=== PATIENT | female | born 1975 | race Caucasian/White ===

== ENCOUNTER 2021-09-06 11:52 | Inpatient (IN) | payer MEDICARE, MEDICAID, SELFPAY ==
--- NOTE | ~2021-09-06 | CT_ITS ---
EXAMINATION: CT HEAD WITHOUT CONTRAST CLINICAL INFORMATION: Seizures COMPARISON: None. TECHNIQUE: Contiguous axial imaging was performed from the skull base to vertex without intravenous administration of contrast. Coronal and sagittal reformatted images are performed at the CT scanner. [This CT examination was performed using dose optimization techniques as appropriate, variously including the following: *Automated exposure control *Adjustment of mA and/or kV according to patient size (this includes techniques or standardized protocols for targeted exams where dose is matched to indication/reason for exam; i.e. extremities or head) *Use of iterative reconstruction technique] DLP: 646 mGy-cm. FINDINGS: There is no evidence of acute intracranial hemorrhage or territorial infarction. No abnormal mass-effect or midline shift is seen. Mor[place] to white matter differentiation is well preserved. No extra-axial fluid collections are identified. The ventricles are normal in size. There is no abnormal attenuation within the brain parenchyma. There is no osseous abnormality. The mastoid air cells and visualized portions of the paranasal sinuses are well-aerated. CT/CT head/brain wo con IMPRESSION: No acute intracranial pathology.
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
[2021-09-06 12:34] VITALS: BP 135/64; PULSE 76; RESP 18; TEMP 37; O2SAT 95; BMI 33.2
[2021-09-06 13:50] LABS: MANUAL DIFF FLAG NO
[2021-09-06 13:54] LABS: Basophils Percent Auto 0.3 % (0-2); Eosinophils Absolute Auto 0.1 X10*3/uL (0.0-0.4); Eosinophils Percent Auto 2.1 % (0-4); Hemoglobin 9.5 g/dl (12.0-16.0); Imm Gran Abs Auto 0.02 X10*3/uL (0.00-0.03); Imm Gran Pct Auto 0.3 % (0.0-0.4); Lymphocytes Absolute Auto 2.6 X10*3/uL (1.2-4.9); Lymphocytes Percent Auto 38.2 % (20-40); Mean Corpuscular HGB Conc 32.8 g/dl (31.0-35.0); Mean Corpuscular Hemoglobin 28.3 pg (27.0-33.0); Mean Corpuscular Volume 86.3 fL (80.0-98.0); Mean Platelet Volume 11.2 fL (9.4-12.3); Monocytes Absolute Auto 0.7 X10*3/uL (0.1-1.2); Monocytes Percent Auto 9.7 % (2-11); Neutrophils Absolute Auto 3.3 x10*3/uL (2.0-8.3); Neutrophils Percent Auto 49.4 % (45-73); Platelet Count 178 X10*3/uL (160-400); Red Blood Count 3.36 X10*6/uL (4.20-5.50); Red Cell Distribution Width 13.7 % (11.0-16.0); White Blood Count 6.7 X10*3/uL (4.8-10.8)
[2021-09-06 13:57] LABS: UPreg QC Valid YES; Urine Pregnancy NEGATIVE (NEGATIVE)
[2021-09-06 13:58] LABS: Appearance Urine CLEAR; Color Urine YELLOW; Glucose Urine UA NEG (NEG); Leukocyte Esterase Urine 2+ (NEG); Nitrite Urine NEG (NEG); Specific Gravity - Urine 1.025 (1.005-1.025); UACC Culture Trigger YES; Urine Blood NEG (NEG); Urine Ketones NEG (NEG); Urine Protein NEG (NEG-TRACE)
[2021-09-06 14:09] LABS: Bacteria Urine TRACE /LPF; RBC Urine 0 /HPF (0); Squamous Epithelial Cell Urine 4+ /LPF
[2021-09-06 14:11] LABS: Amphetamine Screen Urine Not Detected (Not Detect); Barbiturates, Urine Not Detected (Not Detect); Benzodiazepines Screen Urine Not Detected (Not Detect); Cannabinoid Screen Urine Not Detected (Not Detect); Cocaine Screen Urine Not Detected (Not Detect); Fentanyl, urine Not Detected (Not Detect); Opiate Screen Urine Not Detected (Not Detect); Phencyclidine Screen Urine Not Detected (Not Detect)
[2021-09-06 14:23] LABS: Alanine Aminotransferase 30 U/L (0-31); Albumin Level 4.2 g/dL (3.5-5.0); Alkaline Phosphatase 47 U/L (39-117); Anion Gap 12 (12-20); Aspartate Amino Transferase 30 U/L (5-31); Bilirubin Total < 0.2 mg/dL (0.0-1.0); Blood Urea Nitrogen 17 mg/dL (9-16); Calcium 9.4 mg/dL (8.4-10.2); Carbon Dioxide 25 mmol/L (22-29); Chloride 104 mmol/L (96-108); Creatinine Clr Calc Pharmacy 82.9; Estimated Glomerular Filt Rate > 60; Ethanol < 10 mg/dL; Glucose Random 104 mg/dL (60-115); Potassium 4.7 mmol/L (3.3-5.1); Sodium 136 mmol/L (135-145); Total Protein 7.5 g/dL (6.5-8.0)
--- NOTE | 2021-09-06 15:16 | ED.PSYCH ---
HPI - Psych General Chief Complaint: Psychiatric Symptoms Stated Complaint: Psych eval Time Seen by Provider: 09/06/21 13:33 Source: patient Mode of arrival: ambulatory Limitations: no limitations History of Present Illness HPI Narrative: 46-year-old female with history of depression presents to ED for depression. Patient states being depressed for months but has no suicidal homicidal ideations. Patient saw her psychiatrist yesterday recommend her be admitted for inpatient and to receive ECT. Patient denies any physical complaints. Related Data Home Medications Medication Instructions Recorded Confirmed albuterol sulfate 90 mcg/actuation 1 inh inhalation Q4H PRN SOB 09/06/21 09/06/21 aerosol inhaler aripiprazole 2 mg tablet 1 tab PO DAILY 09/06/21 09/06/21 buprenorphine 8 mg-naloxone 2 mg 1 strip sublingual TID 09/06/21 09/06/21 sublingual film cholecalciferol (vitamin D3) 50 1 cap PO DAILY 09/06/21 09/06/21 mcg (2,000 unit) capsule (Vitamin D3) clonidine HCl 0.1 mg tablet 1 tab PO TID PRN Anxiety 09/06/21 09/06/21 clotrimazole 1 % topical cream 1 appl topical BID PRN Rash 09/06/21 09/06/21 dextroamphetamine-amphetamine ER 1 cap PO DAILY 09/06/21 09/06/21 25 mg 24hr capsule,extend release estradiol 2 mg (7.5 mcg/24 hour) 1 ring vaginal [id number] 09/06/21 09/06/21 vaginal ring (Estring) gabapentin 600 mg tablet 1 tab PO QID 09/06/21 09/06/21 ibuprofen 800 mg tablet 1 tab PO TID 09/06/21 09/06/21 levothyroxine 100 mcg tablet 1 tab PO DAILY 09/06/21 09/06/21 linaclotide 290 mcg capsule 1 cap PO DAILY 09/06/21 09/06/21 (Linzess) lorazepam 0.5 mg tablet 1 tab PO TID 09/06/21 09/06/21 omeprazole 20 mg capsule,delayed 1 cap PO DAILY@1630 09/06/21 09/06/21 release propranolol 60 mg tablet 1 tab PO BID 09/06/21 09/06/21 sertraline 100 mg tablet 2 tab PO DAILY 09/06/21 09/06/21 simvastatin 40 mg tablet 1 tab PO BEDTIME 09/06/21 09/06/21 zolpidem 10 mg tablet 1 tab PO BEDTIME 09/06/21 09/06/21 Allergies Allergy/AdvReac Type Severity Reaction Status Date / Time No Known Allergies Allergy Verified 09/06/21 12:34 [No Known Allergies*] Review of Systems Review of Systems: Depression [facility] Social History Social History Advance Directives: No Advance Directives Information Provided: No Physical Exam Vital Signs: Vital Signs: Last Vital Signs Temp 97.5 F 09/06/21 16:45 Pulse 79 09/06/21 16:45 Resp 15 09/06/21 16:45 BP 137/68 09/06/21 16:45 Pulse Ox 96 09/06/21 16:45 O2 Del Method 09/06/21 16:45 BMI result Body Mass Index 33.2 Const: General: cooperative, healthy appearing, comfortable, no acute distress, well developed, alert, awake and Physically active Orientation/consciousness: patient oriented x3 HEENT: Head: Yes normal to inspection, Yes No palpable skull fracture present, Yes normocephalic, Yes atraumatic and No abrasion Eyes: General: appearance normal, both eyes and all related structures Neck: Neck: Yes normal visual inspection, Yes full ROM, Yes no lymphadenopathy, Yes no meningeal signs, Yes trachea midline, Yes supple, No anterior neck swelling and No tender Chest: Chest palpation & inspection: normal inspection of the chest and normal palpation of entire chest wall Resp: Effort & Inspection: normal respiratory effort and able to speak in complete sentences Cardio: Jugular venous distension: no JVD Heart sounds: S1 normal heart sound present and S2 normal heart sound present GI: Inspection: Yes normal to inspection and No abdominal wall ecchymosis Palpation (GI): Soft to palpation, not firm, nontender, no guarding and not rigid : General: No CVA tenderness and Yes no CVA tenderness Back/Spine/Pelvis: Back: no CVA tenderness, No CVA tenderness and No back tenderness Skin: General skin exam: no rashes or lesions noted and elasticity normal Neuro: General: patient oriented x3, gait normal, no meningeal signs and CN's II-XI intact bilaterally Cranial nerves: Yes CN's II-XII intact bilaterally Extrem: General: Yes normal to inspection and Yes full ROM Psych: Other: Depressed Appearance: grossly normal and well kempt Course Course Course Narrative: Basic labs ordered. Crisis evaluation placed Reevaluation(s) Reevaluation #1: Liver normal. UA shows contamination. Patient awaiting crisis evaluation Time: 18:21 MDM - Psych MDM Narrative Medical decision making narrative: Depression Lab Data Result diagrams: 09/06/21 13:46 09/06/21 13:46 Labs: Lab Results 09/06/21 09/06/21 09/06/21 Range/Units 13:46 13:46 13:46 WBC 6.7 (4.8-10.8) X10*3/uL RBC 3.36 L (4.20-5.50) X10*6/uL Hgb 9.5 L (12.0-16.0) g/dl Hct 29.0 L (37.0-47.0) % MCV 86.3 (80.0-98.0) fL MCH 28.3 (27.0-33.0) pg MCHC 32.8 (31.0-35.0) g/dl RDW 13.7 (11.0-16.0) % Plt Count 178 (160-400) X10*3/uL MPV 11.2 (9.4-12.3) fL Immature Gran % (Auto) 0.3 (0.0-0.4) % Neut % (Auto) 49.4 (45-73) % Lymph % (Auto) 38.2 (20-40) % [place] % (Auto) 9.7 (2-11) % Eos % (Auto) 2.1 (0-4) % Baso % (Auto) 0.3 (0-2) % Lymph # (Auto) 2.6 (1.2-4.9) X10*3/uL [place] # (Auto) 0.7 (0.1-1.2) X10*3/uL Eos # (Auto) 0.1 (0.0-0.4) X10*3/uL Baso # (Auto) 0.0 (0.0-0.2) X10*3/uL Abs Immat Gran (auto) 0.02 (0.00-0.03) X10*3/uL Absolute Neuts (auto) 3.3 (2.0-8.3) x10*3/uL Absolute Nucleated RBC 0.000 (0.0-0.012) X10*3/uL Nucleated RBC % (auto) 0.0 (0.0-0.2) /100WBC Sodium 136 (135-145) mmol/L Potassium 4.7 (3.3-5.1) mmol/L Chloride 104 (96-108) mmol/L Carbon Dioxide 25 (22-29) mmol/L Anion Gap 12 (12-20) BUN 17 H (9-16) mg/dL Creatinine 0.77 (0.5-1.4) mg/dL Estim Creat Clear Calc 82.9 Estimated GFR > 60 Random Glucose 104 (60-115) mg/dL Calcium 9.4 (8.4-10.2) mg/dL Total Bilirubin < 0.2 (0.0-1.0) mg/dL AST 30 (5-31) U/L ALT 30 (0-31) U/L Alkaline Phosphatase 47 (39-117) U/L Total Protein 7.5 (6.5-8.0) g/dL Albumin 4.2 (3.5-5.0) g/dL Urine Color YELLOW Urine Appearance CLEAR Urine pH 6.0 (5.0-8.0) Ur Specific [place] 1.025 (1.005-1.025) Urine Protein NEG (NEG-TRACE) MG/DL Urine Glucose (UA) NEG (NEG) MG/DL Urine Ketones NEG (NEG) MG/DL Urine Blood NEG (NEG) Urine Nitrite NEG (NEG) Ur Leukocyte Esterase 2+ H (NEG) Urine RBC 0 (0) /HPF Urine WBC 5-9 H (0-4) /HPF Ur Squamous Epith Cells 4+ /LPF Urine Bacteria TRACE /LPF Urine Test (NEGATIVE) Urine Opiates Screen (Not Detect) Urine Fentanyl Screen (Not Detect) Ur Barbiturates Screen (Not Detect) Ur Phencyclidine Scrn (Not Detect) Ur Amphetamines Screen (Not Detect) U Benzodiazepines Scrn (Not Detect) Urine Cocaine Screen (Not Detect) U Marijuana (THC) Screen (Not Detect) Ethyl Alcohol < 10 mg/dL 09/06/21 09/06/21 Range/Units 13:46 13:46 WBC (4.8-10.8) X10*3/uL RBC (4.20-5.50) X10*6/uL Hgb (12.0-16.0) g/dl Hct (37.0-47.0) % MCV (80.0-98.0) fL MCH (27.0-33.0) pg MCHC (31.0-35.0) g/dl RDW (11.0-16.0) % Plt Count (160-400) X10*3/uL MPV (9.4-12.3) fL Immature Gran % (Auto) (0.0-0.4) % Neut % (Auto) (45-73) % Lymph % (Auto) (20-40) % [place] % (Auto) (2-11) % Eos % (Auto) (0-4) % Baso % (Auto) (0-2) % Lymph # (Auto) (1.2-4.9) X10*3/uL [place] # (Auto) (0.1-1.2) X10*3/uL Eos # (Auto) (0.0-0.4) X10*3/uL Baso # (Auto) (0.0-0.2) X10*3/uL Abs Immat Gran (auto) (0.00-0.03) X10*3/uL Absolute Neuts (auto) (2.0-8.3) x10*3/uL Absolute Nucleated RBC (0.0-0.012) X10*3/uL Nucleated RBC % (auto) (0.0-0.2) /100WBC Sodium (135-145) mmol/L Potassium (3.3-5.1) mmol/L Chloride (96-108) mmol/L Carbon Dioxide (22-29) mmol/L Anion Gap (12-20) BUN (9-16) mg/dL Creatinine (0.5-1.4) mg/dL Estim Creat Clear Calc Estimated GFR Random Glucose (60-115) mg/dL Calcium (8.4-10.2) mg/dL Total Bilirubin (0.0-1.0) mg/dL AST (5-31) U/L ALT (0-31) U/L Alkaline Phosphatase (39-117) U/L Total Protein (6.5-8.0) g/dL Albumin (3.5-5.0) g/dL Urine Color Urine Appearance Urine pH (5.0-8.0) Ur Specific [place] (1.005-1.025) Urine Protein (NEG-TRACE) MG/DL Urine Glucose (UA) (NEG) MG/DL Urine Ketones (NEG) MG/DL Urine Blood (NEG) Urine Nitrite (NEG) Ur Leukocyte Esterase (NEG) Urine RBC (0) /HPF Urine WBC (0-4) /HPF Ur Squamous Epith Cells /LPF Urine Bacteria /LPF Urine Test NEGATIVE (NEGATIVE) Urine Opiates Screen Not Detected (Not Detect) Urine Fentanyl Screen Not Detected (Not Detect) Ur Barbiturates Screen Not Detected (Not Detect) Ur Phencyclidine Scrn Not Detected (Not Detect) Ur Amphetamines Screen Not Detected (Not Detect) U Benzodiazepines Scrn Not Detected (Not Detect) Urine Cocaine Screen Not Detected (Not Detect) U Marijuana (THC) Screen Not Detected (Not Detect) Ethyl Alcohol mg/dL Discharge Plan Discharge Clinical Impression: Depression Patient Disposition: Still a Patient Prescriptions: No Action clonidine HCl 0.1 mg tablet 1 tab PO TID PRN (Reason: Anxiety) gabapentin 600 mg tablet 1 tab PO QID ibuprofen 800 mg tablet 1 tab PO TID sertraline 100 mg tablet 2 tab PO DAILY propranolol 60 mg tablet 1 tab PO BID simvastatin 40 mg tablet 1 tab PO BEDTIME levothyroxine 100 mcg tablet 1 tab PO DAILY lorazepam 0.5 mg tablet 1 tab PO TID omeprazole 20 mg capsule,delayed release(DR/EC) 1 cap PO DAILY@1630 zolpidem 10 mg tablet 1 tab PO BEDTIME albuterol sulfate 90 mcg/actuation HFA aerosol inhaler 1 inh INHALATION Q4H PRN (Reason: SOB) dextroamphetamine-amphetamine 25 mg capsule,extended release 24hr 1 cap PO DAILY aripiprazole 2 mg tablet 1 tab PO DAILY cholecalciferol (vitamin D3) [Vitamin D3] 50 mcg (2,000 unit) capsule 1 cap PO DAILY buprenorphine-naloxone 8-2 mg film 1 strip sublingual TID Linzess 290 mcg capsule 1 cap PO DAILY Estring 2 mg (7.5 mcg /24 hour) ring 1 ring vaginal [id number] clotrimazole 1 % Cream 1 appl TOPICAL BID PRN (Reason: Rash) Rx Instructions: apply to under breast
--- NOTE | 2021-09-06 16:28 | PHA.MEDREC ---
Pharmacy Consult ? Medication Reconciliation Pharmacy has completed the medication reconciliation. Patient reported all medications. Reports taking ibuprofen and ativan scheduled instead of as needed. Patient reports that she does not need the linzess while she it here. Hayley Metz, PharmD
[2021-09-06 16:45] VITALS: BP 137/68; PULSE 79; RESP 15; TEMP 36.4; O2SAT 96
[2021-09-06 20:37] VITALS: BP 121/76; PULSE 71
[2021-09-06] MEDS: Propranolol HCL 20 MG TABLET 60 MG PO (20:39)
[2021-09-06] MEDS: Ibuprofen 800 MG TABLET PO (20:40)
[2021-09-06] MEDS: Gabapentin 600 MG TABLET PO (20:40)
[2021-09-06] MEDS: LORazepam 0.5 MG TABLET PO (20:40)
[2021-09-06] MEDS: Atorvastatin Calcium 20 MG TABLET PO (20:40)
[2021-09-06] MEDS: Buprenorphine/Naloxone 8/2 mg FILM 1 FILM SUBLINGUAL (20:41)
[2021-09-06] MEDS: Zolpidem Tartrate 5 MG TABLET PO (22:23)
[2021-09-06 23:26] LABS: COVID-19 Test Negative (Negative); IDNOW Serial# 16C4AD1C
[2021-09-06 23:45] VITALS: BP 131/73; PULSE 68; RESP 18; TEMP 36.6; O2SAT 96
--- NOTE | 2021-09-07 01:40 | PC.ADMIT ---
Nneka is a 46 year old Maldivian speaking woman who self presented to [facility] [place] ED due to increase in depression, anxiety and vague SI . She reports broken sleep and decreased appetite, she is hoping to receive ECT and reports it has been helpful in the past. She suffers from chronic back pain, hypertension, hypothyroidism and osteoporosis due to early menopause. Tox screen and Covid test were negative.She has a history of chronic constipation which she takes Linzess every other day for but she was told that it is not available at [facility]. Her mood was depressed with good insight and is hopeful of a positive outcome with ECT
[2021-09-07 06:00] VITALS: BP 131/72; PULSE 62; RESP 18; TEMP 35.9; O2SAT 96
[2021-09-07] MEDS: Levothyroxine Sodium 100 MCG TABLET PO (06:56)
[2021-09-07 08:44] LABS: Estimated Average Glucose 140 mg/dL; Hemoglobin A1c % 6.5 %
[2021-09-07 09:00] LABS: Cholesterol 315 mg/dL; HDL Cholesterol 49 mg/dL; LDL Cholesterol Calculated 199 mg/dl; Triglycerides 339 mg/dL
[2021-09-07 09:08] LABS: Free T4 (Free Thyroxine) 1.23 ng/dL (0.71-1.85); Thyroid Stimulating Hormone 0.02 uIU/mL (0.32-4.0)
[2021-09-07 09:26] LABS: Folate 9.5 ng/mL (> or = 4.0); Vitamin B12 336 pg/mL (200-900)
[2021-09-07] MEDS: Buprenorphine/Naloxone 8/2 mg FILM 1 FILM SUBLINGUAL ×3 (09:30→20:39)
[2021-09-07] MEDS: Dextroamphetamine/Amphetamine XR 5 MG CAP.ER.24H 25 MG PO (09:30)
[2021-09-07] MEDS: ARIPiprazole 2 MG TABLET PO (09:30)
[2021-09-07] MEDS: Gabapentin 600 MG TABLET PO ×4 (09:31→20:39)
[2021-09-07] MEDS: Propranolol HCL 20 MG TABLET 60 MG PO ×2 (09:32→20:39)
[2021-09-07] MEDS: LORazepam 0.5 MG TABLET PO ×3 (09:32→20:39)
[2021-09-07] MEDS: Ibuprofen 800 MG TABLET PO ×3 (09:33→20:39)
[2021-09-07] MEDS: Cholecalciferol (Vitamin D3) 25 MCG TABLET 50 MCG PO (09:39)
[2021-09-07] MEDS: Sertraline HCL 100 MG TABLET 200 MG PO (10:37)
[2021-09-07] MEDS: Acetaminophen 325 MG TABLET 650 MG PO (13:29)
[2021-09-07] MEDS: Omeprazole 20 MG CAPSULE.DR PO (17:16)
[2021-09-07 18:00] VITALS: BP 167/91; PULSE 76; RESP 18; TEMP 36.1; O2SAT 95
--- NOTE | 2021-09-07 18:25 | HO.PSYADMNOT ---
HPI Date of Service: 09/07/21 Chief Complaint: ECT, Depression Sources of Information: patient interviewed, chart reviewed and crisis/core team assessment reviewed HPI Subjective Notes: Irby Warning and Conditional Voluntary Healthcare Proxy: No Guardianship: No Medical Problems Affecting Mental Status: No Narrative: 46 yo female history of bipolar disorder presents with reports of increase in depression and SI. Reports a history of ECT with Dr. Ding and this was one of the only interventions that helped. States she is doing this for her 15 yo daughter as they are planning on moving at some point to [place] or [place], and I want to be there for her. Current depressive episode has been ongoing for over a year, the anxiety this time is greater than it has ever been in my life . Reports memory issues, disrupted sleep and appetite, and a great deal of time thinking about - if it were not for my daughter I would kill myself . Denies plan, denies hx of attempts. Reports hx of PTSD-triggers with certain smells, noises. Reports renetta by history. Pt and daughter live with pt's parents. Pt spends her days in her room (has done this for years). Gets her daughter off to school, activities, etc, has no friends, no social life, just remains in her room. Would like to begin an exercise program if she were to feel less depressed. Does have a puppy and takes care of her, otherwise, amotivation, anergia and isolation are strong sx. Past Psychiatric History: IP: 5 OP [facility] [employer] Geovanna Reed-psychothrapy PCP does psychopharm-Pam Dan [facility] Had initial psychopharm appt with [employer] [employer]-prescriber told her to come to [facility] and get admitted for ECT Trials: Several Medical Evaluation Reviewed: Yes [facility] Medical History (Updated 09/07/21 @ 18:42 by Airam Bishop APRN) Bipolar disorder, now depressed Narrative: Hypothyroid Anemia Family History: Depression Diagnostics Vital Signs (24Hr): Vital Signs - 24 hr 09/06/21 20:37 09/06/21 23:45 09/07/21 06:00 Temperature 97.9 F 96.6 F L Pulse Rate 71 68 62 Respiratory Rate 18 18 Blood Pressure 121/76 131/73 131/72 Pulse Oximetry 96 96 Oxygen Delivery Method Room Air Room Air BMI result Body Mass Index 33.2 Labs Results: 09/06/21 13:46 09/06/21 13:46 Labs: Laboratory Results - last 48 hr 09/06/21 09/06/21 09/06/21 13:46 13:46 13:46 WBC 6.7 RBC 3.36 L Hgb 9.5 L Hct 29.0 L MCV 86.3 MCH 28.3 MCHC 32.8 RDW 13.7 Plt Count 178 MPV 11.2 Immature Gran % (Auto) 0.3 Neut % (Auto) 49.4 Lymph % (Auto) 38.2 [place] % (Auto) 9.7 Eos % (Auto) 2.1 Baso % (Auto) 0.3 Lymph # (Auto) 2.6 [place] # (Auto) 0.7 Eos # (Auto) 0.1 Baso # (Auto) 0.0 Abs Immat Gran (auto) 0.02 Absolute Neuts (auto) 3.3 Absolute Nucleated RBC 0.000 Nucleated RBC % (auto) 0.0 Sodium 136 Potassium 4.7 Chloride 104 Carbon Dioxide 25 Anion Gap 12 BUN 17 H Creatinine 0.77 Estim Creat Clear Calc 82.9 Estimated GFR > 60 Random Glucose 104 Estimat Average Glucose Hemoglobin A1c % Calcium 9.4 Magnesium Total Bilirubin < 0.2 AST 30 ALT 30 Alkaline Phosphatase 47 Total Protein 7.5 Albumin 4.2 Triglycerides Cholesterol LDL Cholesterol, Calc HDL Cholesterol Vitamin B12 Folate TSH Free T4 Urine Color YELLOW Urine Appearance CLEAR Urine pH 6.0 Ur Specific [place] 1.025 Urine Protein NEG Urine Glucose (UA) NEG Urine Ketones NEG Urine Blood NEG Urine Nitrite NEG Ur Leukocyte Esterase 2+ H Urine RBC 0 Urine WBC 5-9 H Ur Squamous Epith Cells 4+ Urine Bacteria TRACE Urine Test Urine Opiates Screen Urine Fentanyl Screen Ur Barbiturates Screen Ur Phencyclidine Scrn Ur Amphetamines Screen U Benzodiazepines Scrn Urine Cocaine Screen U Marijuana (THC) Screen Ethyl Alcohol < 10 COVID-19 (ROMAN) COVID-19 Clin Com 09/06/21 09/06/21 09/06/21 13:46 13:46 22:50 WBC RBC Hgb Hct MCV MCH MCHC RDW Plt Count MPV Immature Gran % (Auto) Neut % (Auto) Lymph % (Auto) [place] % (Auto) Eos % (Auto) Baso % (Auto) Lymph # (Auto) [place] # (Auto) Eos # (Auto) Baso # (Auto) Abs Immat Gran (auto) Absolute Neuts (auto) Absolute Nucleated RBC Nucleated RBC % (auto) Sodium Potassium Chloride Carbon Dioxide Anion Gap BUN Creatinine Estim Creat Clear Calc Estimated GFR Random Glucose Estimat Average Glucose Hemoglobin A1c % Calcium Magnesium Total Bilirubin AST ALT Alkaline Phosphatase Total Protein Albumin Triglycerides Cholesterol LDL Cholesterol, Calc HDL Cholesterol Vitamin B12 Folate TSH Free T4 Urine Color Urine Appearance Urine pH Ur Specific [place] Urine Protein Urine Glucose (UA) Urine Ketones Urine Blood Urine Nitrite Ur Leukocyte Esterase Urine RBC Urine WBC Ur Squamous Epith Cells Urine Bacteria Urine Test NEGATIVE Urine Opiates Screen Not Detected Urine Fentanyl Screen Not Detected Ur Barbiturates Screen Not Detected Ur Phencyclidine Scrn Not Detected Ur Amphetamines Screen Not Detected U Benzodiazepines Scrn Not Detected Urine Cocaine Screen Not Detected U Marijuana (THC) Screen Not Detected Ethyl Alcohol COVID-19 (ROMAN) Negative COVID-[employer] [place] Com See Note 09/07/21 09/07/21 09/07/21 08:03 08:03 08:03 WBC RBC Hgb Hct MCV MCH MCHC RDW Plt Count MPV Immature Gran % (Auto) Neut % (Auto) Lymph % (Auto) [place] % (Auto) Eos % (Auto) Baso % (Auto) Lymph # (Auto) [place] # (Auto) Eos # (Auto) Baso # (Auto) Abs Immat Gran (auto) Absolute Neuts (auto) Absolute Nucleated RBC Nucleated RBC % (auto) Sodium Potassium Chloride Carbon Dioxide Anion Gap BUN Creatinine Estim Creat Clear Calc Estimated GFR Random Glucose Estimat Average Glucose 140 Hemoglobin A1c % 6.5 Calcium Magnesium 2.0 Total Bilirubin AST ALT Alkaline Phosphatase Total Protein Albumin Triglycerides 339 Cholesterol 315 LDL Cholesterol, Calc 199 HDL Cholesterol 49 Vitamin B12 336 Folate 9.5 TSH 0.02 L Free T4 1.23 Urine Color Urine Appearance Urine pH Ur Specific [place] Urine Protein Urine Glucose (UA) Urine Ketones Urine Blood Urine Nitrite Ur Leukocyte Esterase Urine RBC Urine WBC Ur Squamous Epith Cells Urine Bacteria Urine Test Urine Opiates Screen Urine Fentanyl Screen Ur Barbiturates Screen Ur Phencyclidine Scrn Ur Amphetamines Screen U Benzodiazepines Scrn Urine Cocaine Screen U Marijuana (THC) Screen Ethyl Alcohol COVID-19 (ROMAN) COVID-19 [place] Meds/Allergies Meds Home Medications Medication Instructions Recorded Confirmed Type albuterol sulfate 90 mcg/actuation 1 inh inhalation Q4H PRN SOB 09/06/21 09/06/21 History aerosol inhaler aripiprazole 2 mg tablet 1 tab PO DAILY 09/06/21 09/06/21 History buprenorphine 8 mg-naloxone 2 mg 1 strip sublingual TID 09/06/21 09/06/21 History sublingual film cholecalciferol (vitamin D3) 50 1 cap PO DAILY 09/06/21 09/06/21 History mcg (2,000 unit) capsule (Vitamin D3) clonidine HCl 0.1 mg tablet 1 tab PO TID PRN Anxiety 09/06/21 09/06/21 History clotrimazole 1 % topical cream 1 appl topical BID PRN Rash 09/06/21 09/06/21 History dextroamphetamine-amphetamine ER 1 cap PO DAILY 09/06/21 09/06/21 History 25 mg 24hr capsule,extend release estradiol 2 mg (7.5 mcg/24 hour) 1 ring vaginal [id number] 09/06/21 09/06/21 History vaginal ring (Estring) gabapentin 600 mg tablet 1 tab PO QID 09/06/21 09/06/21 History ibuprofen 800 mg tablet 1 tab PO TID 09/06/21 09/06/21 History levothyroxine 100 mcg tablet 1 tab PO DAILY 09/06/21 09/06/21 History linaclotide 290 mcg capsule 1 cap PO DAILY 09/06/21 09/06/21 History (Linzess) lorazepam 0.5 mg tablet 1 tab PO TID 09/06/21 09/06/21 History omeprazole 20 mg capsule,delayed 1 cap PO DAILY@1630 09/06/21 09/06/21 History release propranolol 60 mg tablet 1 tab PO BID 09/06/21 09/06/21 History sertraline 100 mg tablet 2 tab PO DAILY 09/06/21 09/06/21 History simvastatin 40 mg tablet 1 tab PO BEDTIME 09/06/21 09/06/21 History zolpidem 10 mg tablet 1 tab PO BEDTIME 09/06/21 09/06/21 History Allergies Allergies Allergy/AdvReac Type Severity Reaction Status Date / Time atorvastatin AdvReac Severe Muscle Pain Verified 09/07/21 18:40 lithium AdvReac Severe Anaphylaxis Uncoded 09/07/21 18:28 Mental Status Exam Mental Status Exam Patient Appearance: Appropriate Patient Orientation: Person, Place, Time and Situation Level of Consciousness: Awake and Alert Patient Behavior: Talkative and Cooperative Mood Description: Depressed and Anxious Affect Description: Flat Patient Cognition Impaired: No Ability to Follow Directions: Good Speech Pattern: Spontaneous Speech Memory Description: Intact Hallucinations: None Delusions: Not Present Thought Process: Rumination Thought Content: positive for Circumstantial Depressive Symptoms: Increased Anxiety, Difficulty Sleeping, Changes in Appetite, Feelings of Worthlessness, Hopelessness, Isolating-Friends/Family, Increased Fatigue, Low Self Esteem, Loss of Energy and Difficulty Concentrating Judgement: Good Assessment & Plan Assessment & Plan (1) Bipolar disorder, now depressed: Status: Acute Code(s): F31.30 - Bipolar disorder, current episode depressed, mild or moderate severity, unspecified Plan 46 yo female, hx of bipolar disorder, depression presents after a >1 year episode without sx relief. Hx of ECT at [facility] which she found helpful. Pt returns per recommendation of new [employer] psychopharmacology provider for eval for ECT. Plan: ECT Consult Review of medications/diagnostics Abilify just added-continue Ferrous Sulfate 325 mg daily Patient educated on: medication risk/benefits and therapeutic strategies Informed Consent: further education needed Reason for continued inpatient stay Substantial Risk for: harm to self, inability to function and rapid decompensation
[2021-09-07] MEDS: traZODone HCL 50 MG TABLET PO (20:39)
[2021-09-07] MEDS: Zolpidem Tartrate 5 MG TABLET 10 MG PO (20:39)
--- NOTE | 2021-09-08 | ECG_ITS ---
Test Reason : Chest discomfort Blood Pressure : / mmHG Vent. Rate : 066 BPM Atrial Rate : 066 BPM P-R Int : 166 ms QRS Dur : 094 ms QT Int : 394 ms P-R-T Axes : 042 013 034 degrees QTc Int : 413 ms Normal sinus rhythm Normal ECG When compared with ECG of 10-JAN-2016 11:27, QT has shortened Referred By: Mary Slaughter Electronically Signed By:ELIUD IRBY
[2021-09-08] MEDS: Levothyroxine Sodium 100 MCG TABLET PO (06:41)
[2021-09-08] MEDS: Acetaminophen 325 MG TABLET 650 MG PO ×2 (06:51→23:49)
[2021-09-08 08:00] VITALS: BP 98/57; PULSE 66; TEMP 36.3; O2SAT 95
[2021-09-08] MEDS: Dextroamphetamine/Amphetamine XR 5 MG CAP.ER.24H 25 MG PO (09:10)
[2021-09-08] MEDS: ARIPiprazole 2 MG TABLET PO (09:11)
[2021-09-08] MEDS: Ferrous Sulfate 324 MG TABLET.DR 325 MG PO (09:11)
[2021-09-08] MEDS: Sertraline HCL 100 MG TABLET 200 MG PO (09:12)
[2021-09-08] MEDS: Cholecalciferol (Vitamin D3) 25 MCG TABLET 50 MCG PO (09:12)
[2021-09-08] MEDS: Ibuprofen 800 MG TABLET PO ×3 (09:12→21:53)
[2021-09-08] MEDS: Gabapentin 600 MG TABLET PO ×4 (09:12→21:53)
[2021-09-08] MEDS: Propranolol HCL 20 MG TABLET 60 MG PO ×2 (09:12→21:52)
[2021-09-08] MEDS: LORazepam 0.5 MG TABLET PO ×3 (09:13→21:53)
[2021-09-08] MEDS: Buprenorphine/Naloxone 8/2 mg FILM 1 FILM SUBLINGUAL ×3 (09:13→21:54)
[2021-09-08] MEDS: Omeprazole 20 MG CAPSULE.DR PO (16:56)
[2021-09-08 21:45] VITALS: BP 129/73; PULSE 104; TEMP 36; O2SAT 95
[2021-09-08] MEDS: Zolpidem Tartrate 5 MG TABLET 10 MG PO (21:53)
[2021-09-08] MEDS: traZODone HCL 100 MG TABLET PO (23:49)
--- NOTE | 2021-09-09 01:10 | PC.NURSE ---
0110 c/o right sided facial numbness and blurred vision. no signs of stroke. facial features symetrical, no drooping, no slurred speech. vital signs 108/57. 89. 95%. 96.9 Temp. given sleeping medications prior to symptoms occuring. Hx of facial symtpoms from meds in the past. Will notify MD in morning.
[2021-09-09 06:00] VITALS: BP 110/66; PULSE 65; RESP 18
[2021-09-09] MEDS: Propranolol HCL 20 MG TABLET 60 MG PO ×2 (08:34→20:28)
[2021-09-09] MEDS: Sertraline HCL 100 MG TABLET 200 MG PO (08:34)
[2021-09-09] MEDS: ARIPiprazole 5 MG TABLET PO (08:34)
[2021-09-09] MEDS: LORazepam 0.5 MG TABLET PO ×3 (08:34→20:28)
[2021-09-09] MEDS: Gabapentin 600 MG TABLET PO ×4 (08:34→20:28)
[2021-09-09] MEDS: Ferrous Sulfate 324 MG TABLET.DR PO (08:36)
[2021-09-09] MEDS: Ibuprofen 800 MG TABLET PO ×3 (08:36→20:28)
[2021-09-09] MEDS: Buprenorphine/Naloxone 8/2 mg FILM 1 FILM SUBLINGUAL ×3 (08:36→20:28)
[2021-09-09] MEDS: Levothyroxine Sodium 100 MCG TABLET PO (08:36)
[2021-09-09] MEDS: Cholecalciferol (Vitamin D3) 25 MCG TABLET 50 MCG PO (08:36)
[2021-09-09] MEDS: Dextroamphetamine/Amphetamine XR 5 MG CAP.ER.24H 25 MG PO (08:41)
--- NOTE | 2021-09-09 10:19 | HO.PSYCHPN ---
Subjective Subjective Date of Service: 09/08/21 Reason For Visit: ECT, Depression Subjective Notes: Irby Warning and Conditional Voluntary Healthcare Proxy: No Guardianship: No Medical Problems Affecting Mental Status: No Interim History: Patient seen and discussed with team. EKG wnl. Patient evaluated today and upon interview she reports she is here for ECT consult. Says I feel like I did at home. Started abilify 2 mg, says she hopes it starts to help. Says she didnt sleep at all last night, attributes this to being in the hospital environment. Says she is on her second night without sleep. Will increase trazodone to 100 mg. States I need to get through these ECTs and feel like im coming up a little bit. Upset she doesnt have a single room. In the milieu, patient is safe and appropriate in behavior. Says she feels safe. ? Medication Compliance: Yes Side effects from medications: No Attending Groups: Intermittent Review of Systems Acute medical concerns: No Medical Review of Systems: unchanged Mental Status Exam Mental Status Exam Narrative: Patient Appearance: Appropriate Patient Orientation: Person, Place, Time and Situation Level of Consciousness: Awake and Alert Patient Behavior: Talkative and Cooperative Mood Description: Depressed and Anxious Affect Description: Flat Patient Cognition Impaired: No Ability to Follow Directions: Good Speech Pattern: Spontaneous Speech Memory Description: Intact Hallucinations: None Delusions: Not Present Thought Process: Rumination Thought Content: positive for Circumstantial Depressive Symptoms: Increased Anxiety, Difficulty Sleeping, Changes in Appetite, Feelings of Worthlessness, Hopelessness, Isolating-Friends/Family, Increased Fatigue, Low Self Esteem, Loss of Energy and Difficulty Concentrating Judgement: Good Diagnostics Vital Signs (24Hr): Vital Signs - 24 hr 09/08/21 21:45 09/09/21 06:00 Temperature 96.8 F Pulse Rate 104 H 65 Respiratory Rate 18 Blood Pressure 129/73 110/66 Pulse Oximetry 95 Oxygen Delivery Method Room Air BMI result Body Mass Index 33.2 Labs Results: 09/06/21 13:46 09/06/21 13:46 Medications Medications Current Medications Acetaminophen (Acetaminophen 325 Mg Tablet) 650 mg PO Q6H PRN PRN Reason: Headache/Pain Mild Scale (1-3) Last Admin: 09/08/21 23:49 Dose: 650 mg Al Hydroxide/Mg Hydroxide (Magnesium Hydrox/Alum Hydrox 30 Ml Oral.Susp) 30 ml PO Q6H PRN PRN Reason: Heartburn/Nausea Albuterol Sulfate (Albuterol Sulfate 90 Mcg 8 Gm Inhaler) 1 puff INHALE Q4H PRN PRN Reason: Shortness of Breath Amphetamine/Dextroamphetamine (Dextroamphetamine/Amphetamine Xr 5 Mg Cap.Er.24h) 25 mg PO DAILY [facility] Last Admin: 09/09/21 08:41 Dose: 25 mg Aripiprazole (Aripiprazole 5 Mg Tablet) 5 mg PO DAILY [facility] Last Admin: 09/09/21 08:34 Dose: 5 mg Buprenorphine/Naloxone (Buprenorphine/Naloxone 8/2 Mg Film) 1 film SUBLINGUAL TID [facility] Last Admin: 09/09/21 08:36 Dose: 1 film Clonidine HCl (Clonidine Hcl 0.1 Mg Tablet) 0.1 mg PO TID PRN; Protocol PRN Reason: Anxiety Clotrimazole (Clotrimazole 1 % Cream 15 Gm Tube) 1 appl TOPICAL BID PRN; Protocol PRN Reason: Rash Ferrous Sulfate (Ferrous Sulfate 324 Mg Tablet.) 324 mg PO DAILY [facility] Last Admin: 09/09/21 08:36 Dose: 324 mg Gabapentin (Gabapentin 600 Mg Tablet) 600 mg PO QID [facility] Last Admin: 09/09/21 08:34 Dose: 600 mg Hydroxyzine HCl (Hydroxyzine Hcl 25 Mg Tablet) 25 mg PO Q6H PRN PRN Reason: Anxiety Ibuprofen (Ibuprofen 800 Mg Tablet) 800 mg PO TID [facility] Last Admin: 09/09/21 08:36 Dose: 800 mg Levothyroxine Sodium (Levothyroxine Sodium 100 Mcg Tablet) 100 mcg PO DAILY@0600 [facility] Last Admin: 09/09/21 08:36 Dose: 100 mcg Lorazepam (Lorazepam 0.5 Mg Tablet) 0.5 mg PO TID [facility] Last Admin: 09/09/21 08:34 Dose: 0.5 mg Magnesium Hydroxide (Milk Of Magnesia 30 Ml Oral.Susp) 30 ml PO DAILY PRN PRN Reason: Constipation Omeprazole (Omeprazole 20 Mg Capsule.) 20 mg PO DAILY@1630 [facility] Last Admin: 09/08/21 16:56 Dose: 20 mg Pharmacy Consult (Consult Rx Perform Med Rec) 1 each MISCELLANE ONCE PRN PRN Reason: Consult order Propranolol HCl (Propranolol Hcl 20 Mg Tablet) 60 mg PO BID [facility]; Protocol Last Admin: 09/09/21 08:34 Dose: 60 mg Sertraline HCl (Sertraline Hcl 100 Mg Tablet) 200 mg PO DAILY [facility] Last Admin: 09/09/21 08:34 Dose: 200 mg Trazodone HCl (Trazodone Hcl 100 Mg Tablet) 100 mg PO BEDTIME PRN PRN Reason: Insomnia Last Admin: 09/08/21 23:49 Dose: 100 mg Vitamin D (Cholecalciferol (Vitamin D3) 25 Mcg Tablet) 50 mcg PO DAILY [facility] Last Admin: 09/09/21 08:36 Dose: 50 mcg Zolpidem Tartrate (Zolpidem Tartrate 5 Mg Tablet) 10 mg PO BEDTIME [facility] Last Admin: 09/08/21 21:53 Dose: 10 mg Allergies Allergies Allergy/AdvReac Type Severity Reaction Status Date / Time atorvastatin AdvReac Severe Muscle Pain Verified 09/07/21 18:40 lithium AdvReac Severe Anaphylaxis Uncoded 09/07/21 18:28 Assessment & Plan Assessment & Plan (1) Bipolar disorder, now depressed: Status: Acute Code(s): F31.30 - Bipolar disorder, current episode depressed, mild or moderate severity, unspecified Plan 46 yo female, hx of bipolar disorder, depression presents after a >1 year episode without sx relief. H[place] of [place] [facility] [place] she found helpful. Pt returns per recommendation of new [facility] psychopharmacology provider for eval for ECT. Plan: ECT Consult Review of medications/diagnostics Abilify just added-continue Ferrous Sulfate 325 mg daily I spent minutes with the patient and/or on the patient floor today, greater than?50% of which was spent counseling/coordinating care. Patient educated on: medication risk/benefits Reason for contiued inpatient stay Substantial Risk for: harm to self, inability to function, rapid decompensation and med/psych decompensation
--- NOTE | 2021-09-09 10:19 | HO.PSYCHPN ---
Subjective Subjective Date of Service: 09/09/21 Reason For Visit: ECT, Depression Subjective Notes: Irby Warning and Conditional Voluntary Healthcare Proxy: No Guardianship: No Medical Problems Affecting Mental Status: No Interim History: Patient seen and discussed with team. Patient evaluated today and upon interview she reports she slept for 5 hours, says the increase in trazodone helped. Feels she has been settling in. Things are going better with her roommate. Says she is trying to be more active, has been up and walking, which helps with back pain. No SE on abilify, wants to increase the dose. Interested in vagus nerve stimulation for depression. Says she is very motivated to feel better, I just want it so bad. In the milieu, patient is safe and appropriate in behavior. Says she feels safe. Medication Compliance: Yes Side effects from medications: No Attending Groups: Intermittent Review of Systems Acute medical concerns: No Medical Review of Systems: unchanged Mental Status Exam Mental Status Exam Narrative: Patient Appearance: Appropriate Patient Orientation: Person, Place, Time and Situation Level of Consciousness: Awake and Alert Patient Behavior: Talkative and Cooperative Mood Description: Depressed and Anxious Affect Description: Flat Patient Cognition Impaired: No Ability to Follow Directions: Good Speech Pattern: Spontaneous Speech Memory Description: Intact Hallucinations: None Delusions: Not Present Thought Process: Rumination Thought Content: positive for Circumstantial Depressive Symptoms: Increased Anxiety, Difficulty Sleeping, Changes in Appetite, Feelings of Worthlessness, Hopelessness, Isolating-Friends/Family, Increased Fatigue, Low Self Esteem, Loss of Energy and Difficulty Concentrating Judgement: Good Diagnostics Vital Signs (24Hr): Vital Signs - 24 hr 09/08/21 21:45 09/09/21 06:00 Temperature 96.8 F Pulse Rate 104 H 65 Respiratory Rate 18 Blood Pressure 129/73 110/66 Pulse Oximetry 95 Oxygen Delivery Method Room Air BMI result Body Mass Index 33.2 Labs Results: 09/06/21 13:46 09/06/21 13:46 Medications Medications Current Medications Acetaminophen (Acetaminophen 325 Mg Tablet) 650 mg PO Q6H PRN PRN Reason: Headache/Pain Mild Scale (1-3) Last Admin: 09/08/21 23:49 Dose: 650 mg Al Hydroxide/Mg Hydroxide (Magnesium Hydrox/Alum Hydrox 30 Ml Oral.Susp) 30 ml PO Q6H PRN PRN Reason: Heartburn/Nausea Albuterol Sulfate (Albuterol Sulfate 90 Mcg 8 Gm Inhaler) 1 puff INHALE Q4H PRN PRN Reason: Shortness of Breath Amphetamine/Dextroamphetamine (Dextroamphetamine/Amphetamine Xr 5 Mg Cap.Er.24h) 25 mg PO DAILY [facility] Last Admin: 09/09/21 08:41 Dose: 25 mg Aripiprazole (Aripiprazole 5 Mg Tablet) 5 mg PO DAILY [facility] 234 BEDS AT [facility] Last Admin: 09/09/21 08:34 Dose: 5 mg Buprenorphine/Naloxone (Buprenorphine/Naloxone 8/2 Mg Film) 1 film SUBLINGUAL TID [facility] 234 BEDS AT [facility] Last Admin: 09/09/21 08:36 Dose: 1 film Clonidine HCl (Clonidine Hcl 0.1 Mg Tablet) 0.1 mg PO TID PRN; Protocol PRN Reason: Anxiety Clotrimazole (Clotrimazole 1 % Cream 15 Gm Tube) 1 appl TOPICAL BID PRN; Protocol PRN Reason: Rash Ferrous Sulfate (Ferrous Sulfate 324 Mg Tablet.) 324 mg PO DAILY [facility] 234 BEDS AT [facility] Last Admin: 09/09/21 08:36 Dose: 324 mg Gabapentin (Gabapentin 600 Mg Tablet) 600 mg PO QID [facility] 234 BEDS AT [facility] Last Admin: 09/09/21 08:34 Dose: 600 mg Hydroxyzine HCl (Hydroxyzine Hcl 25 Mg Tablet) 25 mg PO Q6H PRN PRN Reason: Anxiety Ibuprofen (Ibuprofen 800 Mg Tablet) 800 mg PO TID [facility] 234 BEDS AT [facility] Last Admin: 09/09/21 08:36 Dose: 800 mg Levothyroxine Sodium (Levothyroxine Sodium 100 Mcg Tablet) 100 mcg PO DAILY@0600 [facility] 234 BEDS AT [facility] Last Admin: 09/09/21 08:36 Dose: 100 mcg Lorazepam (Lorazepam 0.5 Mg Tablet) 0.5 mg PO TID [facility] 234 BEDS AT [facility] Last Admin: 09/09/21 08:34 Dose: 0.5 mg Magnesium Hydroxide (Milk Of Magnesia 30 Ml Oral.Susp) 30 ml PO DAILY PRN PRN Reason: Constipation Omeprazole (Omeprazole 20 Mg Capsule.) 20 mg PO DAILY@1630 [facility] 234 BEDS AT [facility] Last Admin: 09/08/21 16:56 Dose: 20 mg Pharmacy Consult (Consult Rx Perform Med Rec) 1 each MISCELLANE ONCE PRN PRN Reason: Consult order Propranolol HCl (Propranolol Hcl 20 Mg Tablet) 60 mg PO BID [facility] 234 BEDS AT [facility]; Protocol Last Admin: 09/09/21 08:34 Dose: 60 mg Sertraline HCl (Sertraline Hcl 100 Mg Tablet) 200 mg PO DAILY [facility] 234 BEDS AT [facility] Last Admin: 09/09/21 08:34 Dose: 200 mg Trazodone HCl (Trazodone Hcl 100 Mg Tablet) 100 mg PO BEDTIME PRN PRN Reason: Insomnia Last Admin: 09/08/21 23:49 Dose: 100 mg Vitamin D (Cholecalciferol (Vitamin D3) 25 Mcg Tablet) 50 mcg PO DAILY [facility] 234 BEDS AT [facility] Last Admin: 09/09/21 08:36 Dose: 50 mcg Zolpidem Tartrate (Zolpidem Tartrate 5 Mg Tablet) 10 mg PO BEDTIME [facility]CLUDE 234 BEDS AT [facility] Last Admin: 09/08/21 21:53 Dose: 10 mg Allergies Allergies Allergy/AdvReac Type Severity Reaction Status Date / Time atorvastatin AdvReac Severe Muscle Pain Verified 09/07/21 18:40 lithium AdvReac Severe Anaphylaxis Uncoded 09/07/21 18:28 Assessment & Plan Assessment & Plan (1) Bipolar disorder, now depressed: Status: Acute Code(s): F31.30 - Bipolar disorder, current episode depressed, mild or moderate severity, unspecified Plan 46 yo female, hx of bipolar disorder, depression presents after a >1 year episode without sx relief. [place] [facility] [place]. Pt returns per recommendation of new [facility] psychopharmacology provider for eval for ECT. Plan: ECT Consult Review of medications/diagnostics Abilify just added-continue, increase to 5 mg Ferrous Sulfate 325 mg daily I spent minutes with the patient and/or on the patient floor today, greater than?50% of which was spent counseling/coordinating care. Patient educated on: diagnosis, medication risk/benefits and therapeutic strategies Reason for contiued inpatient stay Substantial Risk for: harm to self, rapid decompensation and med/psych decompensation
[2021-09-09] MEDS: Acetaminophen 325 MG TABLET 650 MG PO ×2 (12:23→21:58)
[2021-09-09] MEDS: Milk of Magnesia 30 ML ORAL.SUSP PO (12:47)
--- NOTE | 2021-09-09 15:22 | PC.RT ---
Discussed Home Cpap with Patient. She [id number] she had a sleep study over 1.5 years ago and it was a home study that was given to her by [facility]. She did qualify from what pt states and she was given a Cpap machine for noc. She states that since she received the Cpap machine, but she has never worn it. This is due because she just got a new puppy and the puppy was biting on her Cpap machine, therefore she called the [employer] and told them to come get her Cpap machine. She does not know her settings, and she would have to repeat another sleep apnea screening due to the test being over 1.5 years old. We certainly can try putting her on ours, but she hasn't worn it ever. So if this is something that the MD who prescribed this while here on M5, then we would be more than willing to accomodate patient. We can start her on Auto Cpap and on room air.
[2021-09-09] MEDS: Omeprazole 20 MG CAPSULE.DR PO (16:52)
[2021-09-09] MEDS: hydrOXYzine HCL 25 MG TABLET PO (19:02)
[2021-09-09] MEDS: Zolpidem Tartrate 5 MG TABLET 10 MG PO (21:17)
[2021-09-09 21:45] VITALS: BP 114/66; PULSE 74; TEMP 35.9; O2SAT 95
[2021-09-09] MEDS: traZODone HCL 100 MG TABLET PO (21:56)
[2021-09-09 23:34] VITALS: PULSE 73; O2SAT 97
[2021-09-10] VITALS (7 sets, daily range): BP systolic 93–170; BP diastolic 55–77; PULSE 74–94; RESP 16; TEMP 36.2–36.8; O2SAT 95–98
--- NOTE | 2021-09-10 | ECG_ITS ---
Test Reason : cp Blood Pressure : / mmHG Vent. Rate : 070 BPM Atrial Rate : 070 BPM P-R Int : 186 ms QRS Dur : 096 ms QT Int : 406 ms P-R-T Axes : 035 007 025 degrees QTc Int : 438 ms Normal sinus rhythm Possible Inferior infarct , age undetermined Abnormal ECG When compared with ECG of 08-SEP-2021 13:25, No significant change was found Referred By: Cliff Babcock Electronically Signed By:BOUCHRA CASTELLANO MD
[2021-09-10] MEDS: traZODone HCL 100 MG TABLET PO (00:16)
[2021-09-10] MEDS: Levothyroxine Sodium 100 MCG TABLET PO (06:29)
[2021-09-10] MEDS: Cholecalciferol (Vitamin D3) 25 MCG TABLET 50 MCG PO (08:19)
[2021-09-10] MEDS: ARIPiprazole 5 MG TABLET PO (08:19)
[2021-09-10] MEDS: Ferrous Sulfate 324 MG TABLET.DR PO (08:19)
[2021-09-10] MEDS: LORazepam 0.5 MG TABLET PO ×3 (08:19→20:24)
[2021-09-10] MEDS: Propranolol HCL 20 MG TABLET 60 MG PO ×2 (08:20→20:24)
[2021-09-10] MEDS: Dextroamphetamine/Amphetamine XR 5 MG CAP.ER.24H 25 MG PO (08:20)
[2021-09-10] MEDS: Sertraline HCL 100 MG TABLET 200 MG PO (08:20)
[2021-09-10] MEDS: Ibuprofen 800 MG TABLET PO ×3 (08:20→20:24)
[2021-09-10] MEDS: Gabapentin 600 MG TABLET PO ×4 (08:20→20:24)
[2021-09-10] MEDS: Buprenorphine/Naloxone 8/2 mg FILM 1 FILM SUBLINGUAL ×3 (08:21→20:24)
[2021-09-10] MEDS: Milk of Magnesia 30 ML ORAL.SUSP PO (11:30)
[2021-09-10] MEDS: carisoprodoL 350 MG TABLET PO ×2 (12:43→18:46)
--- NOTE | 2021-09-10 16:40 | P.PNPSI_ITS ---
Subjective Subjective Date of Service: 09/10/21 Reason For Visit: ECT, Depression Subjective Notes: Conditional Voluntary Healthcare Proxy: No Guardianship: No Medical Problems Affecting Mental Status: Yes (Back spasms-takes Soma which was ordered) Interim History: Tolerating Abilify increase. Finds CPAP helpful Appetite is appropriate in the a.m. then fades as the day progresses Describes more forward thinking-wanting to make social contacts, return to work. By history she reports she knows when the depression if becoming severe when she believes her daughter would be better off without her. Reports she does NOT feel that way today, and believes her participation in the milieu has been helpful-finds the opportunity to reconnect healing. ECT scheduled by Dr. Ryder for 09/12/21. Medication Compliance: Yes Side effects from medications: No Attending Groups: Yes Review of Systems Acute medical concerns: No Medical Review of Systems: unchanged Review of Systems Psychiatric: Reports anxiety, Reports change in appetite, Reports depression, Reports difficulty concentrating, Reports hopelessness, Reports anhedonia and Reports suicidal ideation (decreased) Mental Status Exam Mental Status Exam Patient Appearance: Appropriate Patient Orientation: Person, Place, Time and Situation Level of Consciousness: Alert Patient Behavior: Appropriate, Talkative, Cooperative and Good Eye Contact Mood Description: Depressed and Sad Affect Description: Flat Patient Cognition Impaired: No Ability to Follow Directions: Good Speech Pattern: Spontaneous Speech and Soft-Spoken Memory Description: Intact Hallucinations: None Delusions: Not Present Perceptual Disturbances: Depersonalization Thought Process: Goal Oriented Thought Content: positive for Goal Oriented and positive for Suicidal Ideation (decreasing) Depressive Symptoms: Diff. Making Decisions, Muscle Tension, Muscle Pain, Loss of Int. in Activity, Feelings of Worthlessness, Hopelessness, Isolating- Friends/Family, Feelings of Guilt, Unhappiness, Increased Fatigue, Thoughts of /Suicide (decreasing), Low Self Esteem, Loss of Energy, Difficulty Concentrating and Back Pain Judgement: Good Diagnostics Vital Signs (24Hr): Vital Signs - 24 hr 09/09/21 21:45 09/10/21 06:00 09/10/21 11:11 Temperature 96.6 F L 98.2 F 98.1 F Pulse Rate 74 82 74 Respiratory Rate 16 16 Blood Pressure 114/66 110/63 110/55 L Pulse Oximetry 95 98 96 Oxygen Delivery Method Room Air Room Air Room Air BMI result Body Mass Index 33.2 Labs Results: 09/06/21 13:46 09/06/21 13:46 Medications Medications Current Medications Acetaminophen (Acetaminophen 325 Mg Tablet) 650 mg PO Q6H PRN PRN Reason: Headache/Pain Mild Scale (1-3) Last Admin: 09/09/21 21:58 Dose: 650 mg Al Hydroxide/Mg Hydroxide (Magnesium Hydrox/Alum Hydrox 30 Ml Oral.Susp) 30 ml PO Q6H PRN PRN Reason: Heartburn/Nausea Albuterol Sulfate (Albuterol Sulfate 90 Mcg 8 Gm Inhaler) 1 puff INHALE Q4H PRN PRN Reason: Shortness of Breath Amphetamine/Dextroamphetamine (Dextroamphetamine/Amphetamine Xr 5 Mg Cap.Er.24h) 25 mg PO DAILY [facility] Last Admin: 09/10/21 08:20 Dose: 25 mg Aripiprazole (Aripiprazole 5 Mg Tablet) 5 mg PO DAILY [facility] Last Admin: 09/10/21 08:19 Dose: 5 mg Buprenorphine/Naloxone (Buprenorphine/Naloxone 8/2 Mg Film) 1 film SUBLINGUAL TID [facility] Last Admin: 09/10/21 14:28 Dose: 1 film Carisoprodol (Carisoprodol 350 Mg Tablet) 350 mg PO TID PRN PRN Reason: Pain, Mild (Pain Scale 1-3) Last Admin: 09/10/21 12:43 Dose: 350 mg Clonidine HCl (Clonidine Hcl 0.1 Mg Tablet) 0.1 mg PO TID PRN; Protocol PRN Reason: Anxiety Clotrimazole (Clotrimazole 1 % Cream 15 Gm Tube) 1 appl TOPICAL BID PRN; Protocol PRN Reason: Rash Ferrous Sulfate (Ferrous Sulfate 324 Mg Tablet.Dr) 324 mg PO DAILY [facility] Last Admin: 09/10/21 08:19 Dose: 324 mg Gabapentin (Gabapentin 600 Mg Tablet) 600 mg PO QID [facility] Last Admin: 09/10/21 13:21 Dose: 600 mg Hydroxyzine HCl (Hydroxyzine Hcl 25 Mg Tablet) 25 mg PO Q6H PRN PRN Reason: Anxiety Last Admin: 09/09/21 19:02 Dose: 25 mg Ibuprofen (Ibuprofen 800 Mg Tablet) 800 mg PO TID [facility] Last Admin: 09/10/21 14:28 Dose: 800 mg Levothyroxine Sodium (Levothyroxine Sodium 100 Mcg Tablet) 100 mcg PO DAILY@0600 [facility] Last Admin: 09/10/21 06:29 Dose: 100 mcg Lorazepam (Lorazepam 0.5 Mg Tablet) 0.5 mg PO TID [facility] Last Admin: 09/10/21 14:28 Dose: 0.5 mg Magnesium Hydroxide (Milk Of Magnesia 30 Ml Oral.Susp) 30 ml PO DAILY PRN PRN Reason: Constipation Last Admin: 09/10/21 11:30 Dose: 30 ml Omeprazole (Omeprazole 20 Mg Capsule.Dr) 20 mg PO DAILY@1630 [facility] Last Admin: 09/09/21 16:52 Dose: 20 mg Pharmacy Consult (Consult Rx Perform Med Rec) 1 each MISCELLANE ONCE PRN PRN Reason: Consult order Propranolol HCl (Propranolol Hcl 20 Mg Tablet) 60 mg PO BID [facility]; Protocol Last Admin: 09/10/21 08:20 Dose: 60 mg Sertraline HCl (Sertraline Hcl 100 Mg Tablet) 200 mg PO DAILY [facility] Last Admin: 09/10/21 08:20 Dose: 200 mg Trazodone HCl (Trazodone Hcl 100 Mg Tablet) 100 mg PO BEDTIME PRN PRN Reason: Insomnia Last Admin: 09/10/21 00:16 Dose: 100 mg Vitamin D (Cholecalciferol (Vitamin D3) 25 Mcg Tablet) 50 mcg PO DAILY [facility] Last Admin: 09/10/21 08:19 Dose: 50 mcg Zolpidem Tartrate (Zolpidem Tartrate 5 Mg Tablet) 10 mg PO BEDTIME [facility] Last Admin: 09/09/21 21:17 Dose: 10 mg Allergies Allergies Allergy/AdvReac Type Severity Reaction Status Date / Time atorvastatin AdvReac Severe Muscle Pain Verified 09/07/21 18:40 lithium AdvReac Severe Anaphylaxis Uncoded 09/07/21 18:28 Assessment & Plan Assessment & Plan (1) Bipolar disorder, now depressed: Status: Acute Code(s): F31.30 - Bipolar disorder, current episode depressed, mild or moderate severity, unspecified Plan 46 yo female, hx of bipolar disorder, depression presents after a >1 year epis ode without sx relief. Hx of ECT at [facility] [place] which she found helpful. Pt returns per recommendation of new [employer] psychopharmacology provider for eval for ECT. Plan: ECT Consult Review of medications/diagnostics Abilify just added-continue Ferrous Sulfate 325 mg daily 09/10/21 ECT 09/12/21 Tolerating Abilify increase Continue plan of care. I spent minutes with the patient and/or on the patient floor today, greater than?50% of which was spent counseling/coordinating care. Patient educated on: ECT and therapeutic strategies Informed Consent: understands and further education needed Reason for contiued inpatient stay Substantial Risk for: harm to self, inability to function and rapid decompensation
[2021-09-10] MEDS: Omeprazole 20 MG CAPSULE.DR PO (16:51)
--- NOTE | 2021-09-10 22:27 | P.EN_ITS ---
Event Note Date of Service: 09/10/21 Event Note: Rapid response note: Brief unresponsive episode versus seizure: Per RN patient was trying to take medications, 7 early was briefly unresponsive, noted to the chair, followed by patient had brief shaking episode; [employer] MACHINE OPERATOR was called in. On examination patient gradually recovered, follows commands, able to tell her name. Exam nonfocal. Reportedly patient had remote history of seizures. Seizure precautions Neurology consult Will obtain CT head, EKG, troponins, CBC/BMP
[2021-09-10 22:28] LABS: Glucose, Whole Blood 127 mg/dL (60-115)
[2021-09-10 22:56] LABS: MANUAL DIFF FLAG NO
[2021-09-10 23:05] LABS: Basophils Percent Auto 0.6 % (0-2); Eosinophils Absolute Auto 0.1 X10*3/uL (0.0-0.4); Eosinophils Percent Auto 2.2 % (0-4); Hematocrit 29.8 % (37.0-47.0); Hemoglobin 9.9 g/dl (12.0-16.0); Imm Gran Abs Auto 0.03 X10*3/uL (0.00-0.03); Imm Gran Pct Auto 0.6 % (0.0-0.4); Lymphocytes Absolute Auto 2.1 X10*3/uL (1.2-4.9); Lymphocytes Percent Auto 39.1 % (20-40); Mean Corpuscular HGB Conc 33.2 g/dl (31.0-35.0); Mean Corpuscular Hemoglobin 28.2 pg (27.0-33.0); Mean Corpuscular Volume 84.9 fL (80.0-98.0); Mean Platelet Volume 12.7 fL (9.4-12.3); Monocytes Absolute Auto 0.6 X10*3/uL (0.1-1.2); Monocytes Percent Auto 11.4 % (2-11); Neutrophils Absolute Auto 2.5 x10*3/uL (2.0-8.3); Neutrophils Percent Auto 46.1 % (45-73); Platelet Count 169 X10*3/uL (160-400); Red Blood Count 3.51 X10*6/uL (4.20-5.50); Red Cell Distribution Width 13.7 % (11.0-16.0); White Blood Count 5.4 X10*3/uL (4.8-10.8)
[2021-09-10 23:16] LABS: Anion Gap 17 (12-20); Blood Urea Nitrogen 21 mg/dL (9-16); Calcium 9.5 mg/dL (8.4-10.2); Carbon Dioxide 20 mmol/L (22-29); Chloride 102 mmol/L (96-108); Creatinine Clr Calc Pharmacy 66.5; Estimated Glomerular Filt Rate > 60; Glucose Random 115 mg/dL (60-115); Potassium 3.7 mmol/L (3.3-5.1); Sodium 135 mmol/L (135-145)
[2021-09-10 23:20] LABS: Troponin-I High Sensitivity 7.9 ng/L (<3.5-17.0)
[2021-09-11] MEDS: Zolpidem Tartrate 5 MG TABLET 10 MG PO ×2 (00:02→20:31)
--- NOTE | 2021-09-11 00:39 | PC.NURSE ---
At 2213 patient was standing at the medication window and was noted to be staring with no eye movement or blinking. This senior mortgage underwriter attempted to engage patient by calling her name. A Rapid Response call was initiated at 2218. Patient continued to stare and was noted to have mild tremors. Staff assisted patient onto a chair and vital signs were taken BP 170/77, HR 94 and O2 sats on room air 98%, respirations 14. POC was also done which was 125 per glucometer. Rapid Response team present at this time. Patient's tremors and staring lasted approximately 7 minutes. No loss of consciousness noted, no bowel or bladder incontinence noted. Orders were received from Dr. Babcock for blood work, EKG and CT of head. Patient awake at this time and able to interact with staff. She was taken by staff via wheelchair to have CT scan done after the labs were drawn on M5. Report given to night staff.
[2021-09-11] MEDS: Acetaminophen 325 MG TABLET 650 MG PO ×2 (03:48→13:32)
[2021-09-11] MEDS: carisoprodoL 350 MG TABLET PO ×4 (03:48→23:06)
[2021-09-11] MEDS: Levothyroxine Sodium 100 MCG TABLET PO (06:33)
[2021-09-11 07:45] VITALS: BP 129/67; PULSE 76; RESP 16; TEMP 36.4; O2SAT 98
[2021-09-11] MEDS: Dextroamphetamine/Amphetamine XR 5 MG CAP.ER.24H 25 MG PO (08:44)
[2021-09-11] MEDS: Cholecalciferol (Vitamin D3) 25 MCG TABLET 50 MCG PO (08:44)
[2021-09-11] MEDS: Ferrous Sulfate 324 MG TABLET.DR PO (08:45)
[2021-09-11] MEDS: Ibuprofen 800 MG TABLET PO ×3 (08:45→20:32)
[2021-09-11] MEDS: ARIPiprazole 5 MG TABLET PO (08:45)
[2021-09-11] MEDS: Gabapentin 600 MG TABLET PO ×4 (08:45→20:32)
[2021-09-11] MEDS: Buprenorphine/Naloxone 8/2 mg FILM 1 FILM SUBLINGUAL ×3 (08:45→20:31)
[2021-09-11] MEDS: LORazepam 0.5 MG TABLET PO ×3 (08:46→20:32)
[2021-09-11] MEDS: Sertraline HCL 100 MG TABLET 200 MG PO (08:46)
[2021-09-11] MEDS: Propranolol HCL 20 MG TABLET 60 MG PO ×2 (08:54→20:32)
[2021-09-11 09:33] LABS: Troponin-I High Sensitivity 7.5 ng/L (<3.5-17.0)
[2021-09-11] MEDS: polyethylene glycoL 3350 17 GM POWD.PACK PO ×2 (12:03→20:29)
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
[2021-09-11 15:35] LABS: Iron 91 mcg/dL (30-160); Percent Iron Saturation 18 % (15-50); Total Iron Binding Capacity 506 mcg/dL (228-428); Unsaturated Iron Binding 415 ug/dL
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
--- NOTE | 2021-09-11 16:59 | P.PNPSI_ITS ---
Subjective Subjective Reason For Visit: ECT, Depression Diagnostics Vital Signs (24Hr): Vital Signs - 24 hr 09/10/21 18:45 09/10/21 22:20 09/10/21 23:30 Temperature 97.1 F Pulse Rate 76 94 81 Respiratory Rate 16 Blood Pressure 106/62 170/77 H 94/57 L Pulse Oximetry 95 98 96 Oxygen Delivery Method Room Air Room Air Room Air 09/10/21 23:35 09/10/21 22:30 09/11/21 07:45 Temperature 97.6 F Pulse Rate 76 94 76 Respiratory Rate 16 16 16 Blood Pressure 93/55 L 170/77 H 129/67 Pulse Oximetry 97 98 Oxygen Delivery Method Room Air Room Air BMI result Body Mass Index 33.2 Labs Results: 09/10/21 22:50 09/10/21 22:50 Labs: Laboratory Results - last 48 hr 09/10/21 09/10/21 09/10/21 22:21 22:50 22:50 WBC 5.4 RBC 3.51 L Hgb 9.9 L Hct 29.8 L MCV 84.9 MCH 28.2 MCHC 33.2 RDW 13.7 Plt Count 169 MPV 12.7 H Immature Gran % (Auto) 0.6 H Neut % (Auto) 46.1 Lymph % (Auto) 39.1 Hitchcock % (Auto) 11.4 H Eos % (Auto) 2.2 Baso % (Auto) 0.6 Lymph # (Auto) 2.1 Hitchcock # (Auto) 0.6 Eos # (Auto) 0.1 Baso # (Auto) 0.0 Abs Immat Gran (auto) 0.03 Absolute Neuts (auto) 2.5 Absolute Nucleated RBC 0.000 Nucleated RBC % (auto) 0.0 Sodium 135 Potassium 3.7 D Chloride 102 Carbon Dioxide 20 L Anion Gap 17 BUN 21 H Creatinine 0.96 Estim Creat Clear Calc 66.5 Estimated GFR > 60 POC Glucose 127 H Random Glucose 115 Calcium 9.5 Iron TIBC % Saturation Unsat Iron Binding Troponin I High Sens 25-OH Vitamin D Total 09/10/21 09/11/21 09/11/21 22:50 08:30 14:58 WBC RBC Hgb Hct MCV MCH MCHC RDW Plt Count MPV Immature Gran % (Auto) Neut % (Auto) Lymph % (Auto) Hitchcock % (Auto) Eos % (Auto) Baso % (Auto) Lymph # (Auto) Hitchcock # (Auto) Eos # (Auto) Baso # (Auto) Abs Immat Gran (auto) Absolute Neuts (auto) Absolute Nucleated RBC Nucleated RBC % (auto) Sodium Potassium Chloride Carbon Dioxide Anion Gap BUN Creatinine Estim Creat Clear Calc Estimated GFR POC Glucose Random Glucose Calcium Iron 91 TIBC 506 H % Saturation 18 Unsat Iron Binding 415 Troponin I High Sens 7.9 7.5 25-OH Vitamin D Total 60.0 Imaging Radiology Impressions: ITS Impressions Head CT 09/10/21 23:04 IMPRESSION: No acute intracranial pathology. Medications Medications Current Medications Acetaminophen (Acetaminophen 325 Mg Tablet) 650 mg PO Q6H PRN PRN Reason: Headache/Pain Mild Scale (1-3) Last Admin: 09/11/21 13:32 Dose: 650 mg Al Hydroxide/Mg Hydroxide (Magnesium Hydrox/Alum Hydrox 30 Ml Oral.Susp) 30 ml PO Q6H PRN PRN Reason: Heartburn/Nausea Albuterol Sulfate (Albuterol Sulfate 90 Mcg 8 Gm Inhaler) 1 puff INHALE Q4H PRN PRN Reason: Shortness of Breath Amphetamine/Dextroamphetamine (Dextroamphetamine/Amphetamine Xr 5 Mg Cap.Er.24h) 25 mg PO DAILY [facility] Last Admin: 09/11/21 08:44 Dose: 25 mg Aripiprazole (Aripiprazole 5 Mg Tablet) 5 mg PO DAILY [facility] Last Admin: 09/11/21 08:45 Dose: 5 mg Buprenorphine/Naloxone (Buprenorphine/Naloxone 8/2 Mg Film) 1 film SUBLINGUAL TID [facility] Last Admin: 09/11/21 15:42 Dose: 1 film Carisoprodol (Carisoprodol 350 Mg Tablet) 350 mg PO TID PRN PRN Reason: Pain, Mild (Pain Scale 1-3) Last Admin: 09/11/21 12:01 Dose: 350 mg Clonidine HCl (Clonidine Hcl 0.1 Mg Tablet) 0.1 mg PO TID PRN; Protocol PRN Reason: Anxiety Clotrimazole (Clotrimazole 1 % Cream 15 Gm Tube) 1 appl TOPICAL BID PRN; Protocol PRN Reason: Rash Ferrous Sulfate (Ferrous Sulfate 324 Mg Tablet.) 324 mg PO DAILY [facility] Last Admin: 09/11/21 08:45 Dose: 324 mg Gabapentin (Gabapentin 600 Mg Tablet) 600 mg PO QID [facility] Last Admin: 09/11/21 13:29 Dose: 600 mg Hydroxyzine HCl (Hydroxyzine Hcl 25 Mg Tablet) 25 mg PO Q6H PRN PRN Reason: Anxiety Last Admin: 09/09/21 19:02 Dose: 25 mg Ibuprofen (Ibuprofen 800 Mg Tablet) 800 mg PO TID [facility] Last Admin: 09/11/21 15:42 Dose: 800 mg Levothyroxine Sodium (Levothyroxine Sodium 100 Mcg Tablet) 100 mcg PO D AILY@0600 [facility] Last Admin: 09/11/21 06:33 Dose: 100 mcg Lorazepam (Lorazepam 0.5 Mg Tablet) 0.5 mg PO TID [facility] Last Admin: 09/11/21 15:42 Dose: 0.5 mg Magnesium Hydroxide (Milk Of Magnesia 30 Ml Oral.Susp) 30 ml PO DAILY PRN PRN Reason: Constipation Last Admin: 09/10/21 11:30 Dose: 30 ml Omeprazole (Omeprazole 20 Mg Capsule.Dr) 20 mg PO DAILY@1630 [facility] Last Admin: 09/10/21 16:51 Dose: 20 mg Pharmacy Consult (Consult Rx Perform Med Rec) 1 each MISCELLANE ONCE PRN PRN Reason: Consult order Polyethylene Glycol (Polyethylene Glycol 3350 17 Gm Powd.Pack) 17 gm PO DAILY PRN PRN Reason: Constipation Last Admin: 09/11/21 12:03 Dose: 17 gm Propranolol HCl (Propranolol Hcl 20 Mg Tablet) 60 mg PO BID [facility]; Protocol Last Admin: 09/11/21 08:54 Dose: 60 mg Sertraline HCl (Sertraline Hcl 100 Mg Tablet) 200 mg PO DAILY [facility] Last Admin: 09/11/21 08:46 Dose: 200 mg Trazodone HCl (Trazodone Hcl 100 Mg Tablet) 100 mg PO BEDTIME PRN PRN Reason: Insomnia Last Admin: 09/10/21 00:16 Dose: 100 mg Vitamin D (Cholecalciferol (Vitamin D3) 25 Mcg Tablet) 50 mcg PO DAILY [facility] Last Admin: 09/11/21 08:44 Dose: 50 mcg Zolpidem Tartrate (Zolpidem Tartrate 5 Mg Tablet) 10 mg PO BEDTIME [facility] Last Admin: 09/11/21 00:02 Dose: 10 mg Allergies Allergies Allergy/AdvReac Type Severity Reaction Status Date / Time atorvastatin AdvReac Severe Muscle Pain Verified 09/07/21 18:40 lithium AdvReac Severe Anaphylaxis Uncoded 09/07/21 18:28 Assessment & Plan Assessment & Plan (1) Bipolar disorder, now depressed: Status: Acute Code(s): F31.30 - Bipolar disorder, current episode depressed, mild or moderate severity, unspecified (2) Partial seizures: Status: Acute Code(s): R56.9 - Unspecified convulsions Assessment and Plan: Recommendation: Routine EEG and outpatient 24-hour ambulatory EEG. I don't see any contraindication to proceeding with the ECT (3) History of pseudoseizure: Status: Acute Code(s): Z87.898 - Personal history of other specified conditions Plan 46 yo female, hx of bipolar disorder, depression presents after a >1 year episode without sx relief. Hx of ECT at [facility] which she found helpful. Pt returns per recommendation of new [employer] psychopharmacology provider for eval for ECT. Plan: ECT Consult Review of medications/diagnostics Abilify just added-continue, increase to 5 mg Ferrous Sulfate 325 mg daily I spent minutes with the patient and/or on the patient floor today, greater than?50% of which was spent counseling/coordinating care.
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
[2021-09-11] MEDS: Omeprazole 20 MG CAPSULE.DR PO (17:40)
[2021-09-11 20:13] VITALS: BP 105/56; PULSE 61; TEMP 36.3
[2021-09-11] MEDS: traZODone HCL 100 MG TABLET PO (23:06)
[2021-09-11] MEDS: hydrOXYzine HCL 25 MG TABLET PO (23:07)
--- NOTE | 2021-09-12 | ECG_ITS ---
Test Reason : CHEST PAIN Blood Pressure : / mmHG Vent. Rate : 065 BPM Atrial Rate : 065 BPM P-R Int : 174 ms QRS Dur : 098 ms QT Int : 404 ms P-R-T Axes : 044 004 040 degrees QTc Int : 420 ms Normal sinus rhythm Normal ECG When compared with ECG of 11-SEP-2021 00:14, No significant change was found Referred By: Airam Bishop Electronically Signed By:BOUCHRA CASTELLANO MD
[2021-09-12] MEDS: carisoprodoL 350 MG TABLET PO ×3 (06:08→21:06)
[2021-09-12] MEDS: Levothyroxine Sodium 100 MCG TABLET PO (06:08)
[2021-09-12 08:00] VITALS: BP 123/66; PULSE 77; RESP 17; TEMP 36.1; O2SAT 93
[2021-09-12] MEDS: Dextroamphetamine/Amphetamine XR 5 MG CAP.ER.24H 25 MG PO (08:23)
[2021-09-12] MEDS: ARIPiprazole 5 MG TABLET PO (08:24)
[2021-09-12] MEDS: Sertraline HCL 100 MG TABLET 200 MG PO (08:24)
[2021-09-12] MEDS: Cholecalciferol (Vitamin D3) 25 MCG TABLET 50 MCG PO (08:24)
[2021-09-12] MEDS: Ibuprofen 800 MG TABLET PO ×3 (08:24→21:03)
[2021-09-12] MEDS: Buprenorphine/Naloxone 8/2 mg FILM 1 FILM SUBLINGUAL ×3 (08:24→21:03)
[2021-09-12] MEDS: Propranolol HCL 20 MG TABLET 60 MG PO (08:24)
[2021-09-12] MEDS: Gabapentin 600 MG TABLET PO ×4 (08:25→21:03)
[2021-09-12] MEDS: Ferrous Sulfate 324 MG TABLET.DR PO (08:25)
[2021-09-12] MEDS: LORazepam 0.5 MG TABLET PO ×3 (08:25→21:10)
--- NOTE | 2021-09-12 11:04 | PC.NURSE ---
Pt reported earlier today to this RN that pt was unable to void urine since yesterday evening. Pt also disclosed she has been unable to move her bowels x 2 weeks. Provider aware. Pt bladder scanned for 678 mls. Order for straight cath obtained. When in to room to discuss plan with pt, she reported she as able to finally void after sitting on toilet for 20 mins or so. Plan for urology consult, and mag citrate for constipation.
[2021-09-12] MEDS: Magnesium Citrate 300 ML SOLUTION PO (11:49)
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
[2021-09-12 14:33] VITALS: BP 119/72; PULSE 93; O2SAT 97
[2021-09-12] MEDS: Omeprazole 20 MG CAPSULE.DR PO (17:22)
--- NOTE | 2021-09-12 17:56 | HO.PSYCHPN ---
Subjective Subjective Reason For Visit: ECT, Depression Diagnostics Vital Signs (24Hr): Vital Signs - 24 hr 09/11/21 20:13 09/12/21 08:00 09/12/21 14:33 Temperature 97.4 F 97.0 F Pulse Rate 61 77 93 Respiratory Rate 17 Blood Pressure 105/56 L 123/66 119/72 Pulse Oximetry 93 97 Oxygen Delivery Method Room Air Room Air BMI result Body Mass Index 33.2 Labs Results: 09/10/21 22:50 09/10/21 22:50 Labs: Laboratory Results - last 48 hr 09/10/21 09/10/21 09/10/21 22:21 22:50 22:50 WBC 5.4 RBC 3.51 L Hgb 9.9 L Hct 29.8 L MCV 84.9 MCH 28.2 MCHC 33.2 RDW 13.7 Plt Count 169 MPV 12.7 H Immature Gran % (Auto) 0.6 H Neut % (Auto) 46.1 Lymph % (Auto) 39.1 [place] % (Auto) 11.4 H Eos % (Auto) 2.2 Baso % (Auto) 0.6 Lymph # (Auto) 2.1 [place] # (Auto) 0.6 Eos # (Auto) 0.1 Baso # (Auto) 0.0 Abs Immat Gran (auto) 0.03 Absolute Neuts (auto) 2.5 Absolute Nucleated RBC 0.000 Nucleated RBC % (auto) 0.0 Sodium 135 Potassium 3.7 D Chloride 102 Carbon Dioxide 20 L Anion Gap 17 BUN 21 H Creatinine 0.96 Estim Creat Clear Calc 66.5 Estimated GFR > 60 POC Glucose 127 H Random Glucose 115 Calcium 9.5 Iron TIBC % Saturation Unsat Iron Binding Troponin I High Sens 25-OH Vitamin D Total 09/10/21 09/11/21 09/11/21 22:50 08:30 14:58 WBC RBC Hgb Hct MCV MCH MCHC RDW Plt Count MPV Immature Gran % (Auto) Neut % (Auto) Lymph % (Auto) [place] % (Auto) Eos % (Auto) Baso % (Auto) Lymph # (Auto) [place] # (Auto) Eos # (Auto) Baso # (Auto) Abs Immat Gran (auto) Absolute Neuts (auto) Absolute Nucleated RBC Nucleated RBC % (auto) Sodium Potassium Chloride Carbon Dioxide Anion Gap BUN Creatinine Estim Creat Clear Calc Estimated GFR POC Glucose Random Glucose Calcium Iron 91 TIBC 506 H % Saturation 18 Unsat Iron Binding 415 Troponin I High Sens 7.9 7.5 25-OH Vitamin D Total 60.0 Imaging Radiology Impressions: ITS Impressions Head CT 09/10/21 23:04 IMPRESSION: No acute intracranial pathology. Medications Medications Current Medications Acetaminophen (Acetaminophen 325 Mg Tablet) 650 mg PO Q6H PRN PRN Reason: Headache/Pain Mild Scale (1-3) Last Admin: 09/11/21 13:32 Dose: 650 mg Al Hydroxide/Mg Hydroxide (Magnesium Hydrox/Alum Hydrox 30 Ml Oral.Susp) 30 ml PO Q6H PRN PRN Reason: Heartburn/Nausea Albuterol Sulfate (Albuterol Sulfate 90 Mcg 8 Gm Inhaler) 1 puff INHALE Q4H PRN PRN Reason: Shortness of Breath Amphetamine/Dextroamphetamine (Dextroamphetamine/Amphetamine Xr 5 Mg Cap.Er.24h) 25 mg PO DAILY [facility] Last Admin: 09/12/21 08:23 Dose: 25 mg Aripiprazole (Aripiprazole 5 Mg Tablet) 5 mg PO DAILY [facility] Last Admin: 09/12/21 08:24 Dose: 5 mg Buprenorphine/Naloxone (Buprenorphine/Naloxone 8/2 Mg Film) 1 film SUBLINGUAL TID [facility] Last Admin: 09/12/21 14:11 Dose: 1 film Carisoprodol (Carisoprodol 350 Mg Tablet) 350 mg PO TID PRN PRN Reason: Pain, Mild (Pain Scale 1-3) Last Admin: 09/12/21 14:10 Dose: 350 mg Clonidine HCl (Clonidine Hcl 0.1 Mg Tablet) 0.1 mg PO TID PRN; Protocol PRN Reason: Anxiety Clotrimazole (Clotrimazole 1 % Cream 15 Gm Tube) 1 appl TOPICAL BID PRN; Protocol PRN Reason: Rash Docusate Sodium (Docusate Sodium 100 Mg Capsule) 100 mg PO BID [facility] Ferrous Sulfate (Ferrous Sulfate 324 Mg Tablet.Dr) 324 mg PO DAILY [facility] Last Admin: 09/12/21 08:25 Dose: 324 mg Gabapentin (Gabapentin 600 Mg Tablet) 600 mg PO QID [facility] Last Admin: 09/12/21 17:22 Dose: 600 mg Ibuprofen (Ibuprofen 800 Mg Tablet) 800 mg PO TID [facility] Last Admin: 09/12/21 14:10 Dose: 800 mg Levothyroxine Sodium (Levothyroxine Sodium 100 Mcg Tablet) 100 mcg PO DAILY@0600 [facility] Last Admin: 09/12/21 06:08 Dose: 100 mcg Lorazepam (Lorazepam 0.5 Mg Tablet) 0.5 mg PO TID [facility] Last Admin: 09/12/21 14:11 Dose: 0.5 mg Magnesium Hydroxide (Milk Of Magnesia 30 Ml Oral.Susp) 30 ml PO DAILY PRN PRN Reason: Constipation Last Admin: 09/10/21 11:30 Dose: 30 ml Omeprazole (Omeprazole 20 Mg Capsule.Dr) 20 mg PO DAILY@1630 [facility] Last Admin: 09/12/21 17:22 Dose: 20 mg Pharmacy Consult (Consult Rx Perform Med Rec) 1 each MISCELLANE ONCE PRN PRN Reason: Consult order Polyethylene Glycol (Polyethylene Glycol 3350 17 Gm Powd.Pack) 17 gm PO DAILY PRN PRN Reason: Constipation Last Admin: 09/11/21 12:03 Dose: 17 gm Polyethylene Glycol (Polyethylene Glycol 3350 17 Gm Powd.Pack) 17 gm PO BEDTIME [facility] Last Admin: 09/11/21 20:29 Dose: 17 gm Propranolol HCl (Propranolol Hcl 20 Mg Tablet) 60 mg PO BID [facility]; Protocol Last Admin: 09/12/21 08:24 Dose: 60 mg Sertraline HCl (Sertraline Hcl 100 Mg Tablet) 200 mg PO DAILY [facility] Last Admin: 09/12/21 08:24 Dose: 200 mg Trazodone HCl (Trazodone Hcl 100 Mg Tablet) 100 mg PO BEDTIME PRN PRN Reason: Insomnia Last Admin: 09/11/21 23:06 Dose: 100 mg Vitamin D (Cholecalciferol (Vitamin D3) 25 Mcg Tablet) 50 mcg PO DAILY [facility] Last Admin: 09/12/21 08:24 Dose: 50 mcg Zolpidem Tartrate (Zolpidem Tartrate 5 Mg Tablet) 10 mg PO BEDTIME [facility] Last Admin: 09/11/21 20:31 Dose: 10 mg Allergies Allergies Allergy/AdvReac Type Severity Reaction Status Date / Time atorvastatin AdvReac Severe Muscle Pain Verified 09/07/21 18:40 atarax AdvReac Severe other Uncoded 09/12/21 10:47 lithium AdvReac Severe Anaphylaxis Uncoded 09/07/21 18:28 Assessment & Plan Assessment & Plan (1) History of chest pain: Status: Acute Code(s): Z87.898 - Personal history of other specified conditions (2) Bipolar disorder, now depressed: Status: Acute Code(s): F31.30 - Bipolar disorder, current episode depressed, mild or moderate severity, unspecified (3) Partial seizures: Status: Acute Code(s): R56.9 - Unspecified convulsions (4) History of pseudoseizure: Status: Acute Code(s): Z87.898 - Personal history of other specified conditions Plan Patient is a 46 year old female with history of 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 Responded favorably to ECT about 5-6 years ago and consult has been requested for pre-operative clearance for ECT. 1- History of chest pain/HOOK- currently asymptomatic -Reports long standing without prior workup. EKG reviewed and compared to prior with significant change and showing normal sinus rhythm without evidence of ischemia -Etiology of symptoms unclear at this time but must rule out cardiac. Echo and cards consult ordered -negative troponin x 2 in the ED 2- Bipolar disorder with depressed mood -Continue plan as defined by psychiatry - Requires further cardiac work up as above for pre-operative risk 3- Partial seizure vs pseudoseizure seizure- stable -Reviewed consult note from neurology. EEG planned -ECT not contraindicated per neurology 4- Hypothyroidism- uncontrolled -Last TSH 0.02. T4 within normal limits -Outpatient follow up 5-Anemia- normocytic -H/H- 9.9/29.8 -Unlikely to be causing chest pain. -Continue ferrous sulfate I spent minutes with the patient and/or on the patient floor today, greater than?50% of which was spent counseling/coordinating care.
[2021-09-12 18:00] VITALS: BP 113/58; PULSE 78; RESP 16; TEMP 36.4; O2SAT 97
[2021-09-12] MEDS: Docusate Sodium 100 MG CAPSULE PO (21:03)
[2021-09-12] MEDS: Zolpidem Tartrate 5 MG TABLET 10 MG PO (21:04)
--- NOTE | 2021-09-12 21:17 | P.PNPSI_ITS ---
Subjective Subjective Date of Service: 09/12/21 Reason For Visit: ECT, Depression Subjective Notes: Conditional Voluntary Healthcare Proxy: No Guardianship: No Medical Problems Affecting Mental Status: No Interim History: Team report pt was unable to urinate, bladder scan positive-pt reports she was able to void @ 1030am. Discussed with Dr. Palmer who ordered post void scan, hydroxyzine discontinued, urology eval cancelled. Review of diagnostics with pt- EKG's. Pt experienced an episode of chest pain this afternoon with stable EKG and vital signs. She is pleased that she is having this assessment prior to ECT but is sensitive to receiving results. Reported constipation~ no bowel movement for ~2 weeks [employer]-given magesium citrate without results as yet. Discussed with pt her signing and retracting a TDN on 09/11. Discussed feeling upset and frustrated with peers-received a new room-mate who was upset and had significant body odor. Discussed with team a room change for room-mate and they will work on this. Pt seen by several consultants today which she found helpful but upsetting simultaneously with different styles of information delivery. Met with pt x 3 today to review concerns. Medication Compliance: Yes Side effects from medications: Yes (?urinary hesitancy/constipation from hydroxyzine) Attending Groups: Intermittent Review of Systems Acute medical concerns: No Medical eval thus far is negative per teams consulting with pt. Medical Review of Systems: unchanged Review of Systems Gastrointestinal: Reports constipation Genitourinary: Reports urinary hesitancy (retention resolved as of this time-we will need to monitor) Psychiatric: Reports anxiety, Reports depression and Reports suicidal ideation (denies) Mental Status Exam Mental Status Exam Patient Appearance: Appropriate Patient Orientation: Person, Place, Time and Situation Level of Consciousness: Awake, Appropriate and Alert Patient Behavior: Appropriate, Talkative, Cooperative, Anxious and Good Eye Contact Mood Description: Anxious and Apprehensive Affect Description: Anxious and Apprehensive Patient Cognition Impaired: No Ability to Follow Directions: Good Speech Pattern: Clear, Perseverating, Appropriate, Spontaneous Speech and Soft- Spoken Memory Description: Intact Hallucinations: None Delusions: Not Present Perceptual Disturbances: Depersonalization and Derealization Thought Process: Distracted and Rumination Thought Content: positive for Sage, positive for Circumstantial, positive for Perseveration and positive for Suicidal Ideation (denies) Depressive Symptoms: Increased Anxiety, Thoughts of /Suicide (denies) and Loss of Energy Judgement: Fair Diagnostics Vital Signs (24Hr): Vital Signs - 24 hr 09/12/21 08:00 09/12/21 14:33 Temperature 97.0 F Pulse Rate 77 93 Respiratory Rate 17 Blood Pressure 123/66 119/72 Pulse Oximetry 93 97 Oxygen Delivery Method Room Air Room Air BMI result Body Mass Index 33.2 Labs Results: 09/10/21 22:50 09/10/21 22:50 Labs: Laboratory Results - last 48 hr 09/10/21 09/10/21 09/10/21 22:21 22:50 22:50 WBC 5.4 RBC 3.51 L Hgb 9.9 L Hct 29.8 L MCV 84.9 MCH 28.2 MCHC 33.2 RDW 13.7 Plt Count 169 MPV 12.7 H Immature Gran % (Auto) 0.6 H Neut % (Auto) 46.1 Lymph % (Auto) 39.1 [place] % (Auto) 11.4 H Eos % (Auto) 2.2 Baso % (Auto) 0.6 Lymph # (Auto) 2.1 [place] # (Auto) 0.6 Eos # (Auto) 0.1 Baso # (Auto) 0.0 Abs Immat Gran (auto) 0.03 Absolute Neuts (auto) 2.5 Absolute Nucleated RBC 0.000 Nucleated RBC % (auto) 0.0 Sodium 135 Potassium 3.7 D Chloride 102 Carbon Dioxide 20 L Anion Gap 17 BUN 21 H Creatinine 0.96 Estim Creat Clear Calc 66.5 Estimated GFR > 60 POC Glucose 127 H Random Glucose 115 Calcium 9.5 Iron TIBC % Saturation Unsat Iron Binding Troponin I High Sens 25-OH Vitamin D Total 09/10/21 09/11/21 09/11/21 22:50 08:30 14:58 WBC RBC Hgb Hct MCV MCH MCHC RDW Plt Count MPV Immature Gran % (Auto) Neut % (Auto) Lymph % (Auto) [place] % (Auto) Eos % (Auto) Baso % (Auto) Lymph # (Auto) [place] # (Auto) Eos # (Auto) Baso # (Auto) Abs Immat Gran (auto) Absolute Neuts (auto) Absolute Nucleated RBC Nucleated RBC % (auto) Sodium Potassium Chloride Carbon Dioxide Anion Gap BUN Creatinine Estim Creat Clear Calc Estimated GFR POC Glucose Random Glucose Calcium Iron 91 TIBC 506 H % Saturation 18 Unsat Iron Binding 415 Troponin I High Sens 7.9 7.5 25-OH Vitamin D Total 60.0 Imaging Radiology Impressions: ITS Impressions Head CT 09/10/21 23:04 IMPRESSION: No acute intracranial pathology. Medications Medications Current Medications Acetaminophen (Acetaminophen 325 Mg Tablet) 650 mg PO Q6H PRN PRN Reason: Headache/Pain Mild Scale (1-3) Last Admin: 09/11/21 13:32 Dose: 650 mg Al Hydroxide/Mg Hydroxide (Magnesium Hydrox/Alum Hydrox 30 Ml Oral.Susp) 30 ml PO Q6H PRN PRN Reason: Heartburn/Nausea Albuterol Sulfate (Albuterol Sulfate 90 Mcg 8 Gm Inhaler) 1 puff INHALE Q4H PRN PRN Reason: Shortness of Breath Amphetamine/Dextroamphetamine (Dextroamphetamine/Amphetamine Xr 5 Mg Cap.Er.24h) 25 mg PO DAILY [facility] Last Admin: 09/12/21 08:23 Dose: 25 mg Aripiprazole (Aripiprazole 5 Mg Tablet) 5 mg PO DAILY [facility] Last Admin: 09/12/21 08:24 Dose: 5 mg Buprenorphine/Naloxone (Buprenorphine/Naloxone 8/2 Mg Film) 1 film SUBLINGUAL TID [facility] Last Admin: 09/12/21 21:03 Dose: 1 film Carisoprodol (Carisoprodol 350 Mg Tablet) 350 mg PO TID PRN PRN Reason: Pain, Mild (Pain Scale 1-3) Last Admin: 09/12/21 21:06 Dose: 350 mg Clonidine HCl (Clonidine Hcl 0.1 Mg Tablet) 0.1 mg PO TID PRN; Protocol PRN Reason: Anxiety Clotrimazole (Clotrimazole 1 % Cream 15 Gm Tube) 1 appl TOPICAL BID PRN; Protocol PRN Reason: Rash Docusate Sodium (Docusate Sodium 100 Mg Capsule) 100 mg PO BID [facility] Last Admin: 09/12/21 21:03 Dose: 100 mg Ferrous Sulfate (Ferrous Sulfate 324 Mg Tablet.Dr) 324 mg PO DAILY [facility] Last Admin: 09/12/21 08:25 Dose: 324 mg Gabapentin (Gabapentin 600 Mg Tablet) 600 mg PO QID [facility] Last Admin: 09/12/21 21:03 Dose: 600 mg Ibuprofen (Ibuprofen 800 Mg Tablet) 800 mg PO TID [facility] Last Admin: 09/12/21 21:03 Dose: 800 mg Levothyroxine Sodium (Levothyroxine Sodium 100 Mcg Tablet) 100 mcg PO DAILY@ 0600 [facility] Last Admin: 09/12/21 06:08 Dose: 100 mcg Lorazepam (Lorazepam 0.5 Mg Tablet) 0.5 mg PO TID [facility] Last Admin: 09/12/21 21:10 Dose: 0.5 mg Magnesium Hydroxide (Milk Of Magnesia 30 Ml Oral.Susp) 30 ml PO DAILY PRN PRN Reason: Constipation Last Admin: 09/10/21 11:30 Dose: 30 ml Omeprazole (Omeprazole 20 Mg Capsule.Dr) 20 mg PO DAILY@1630 [facility] Last Admin: 09/12/21 17:22 Dose: 20 mg Pharmacy Consult (Consult Rx Perform Med Rec) 1 each MISCELLANE ONCE PRN PRN Reason: Consult order Polyethylene Glycol (Polyethylene Glycol 3350 17 Gm Powd.Pack) 17 gm PO DAILY PRN PRN Reason: Constipation Last Admin: 09/11/21 12:03 Dose: 17 gm Polyethylene Glycol (Polyethylene Glycol 3350 17 Gm Powd.Pack) 17 gm PO BEDTIME [facility] Last Admin: 09/12/21 21:08 Dose: Not Given Propranolol HCl (Propranolol Hcl 20 Mg Tablet) 60 mg PO BID [facility]; Protocol Last Admin: 09/12/21 21:12 Dose: Not Given Sertraline HCl (Sertraline Hcl 100 Mg Tablet) 200 mg PO DAILY [facility] Last Admin: 09/12/21 08:24 Dose: 200 mg Trazodone HCl (Trazodone Hcl 100 Mg Tablet) 100 mg PO BEDTIME PRN PRN Reason: Insomnia Last Admin: 09/11/21 23:06 Dose: 100 mg Vitamin D (Cholecalciferol (Vitamin D3) 25 Mcg Tablet) 50 mcg PO DAILY [facility] Last Admin: 09/12/21 08:24 Dose: 50 mcg Zolpidem Tartrate (Zolpidem Tartrate 5 Mg Tablet) 10 mg PO BEDTIME [facility] Last Admin: 09/12/21 21:04 Dose: 10 mg Allergies Allergies Allergy/AdvReac Type Severity Reaction Status Date / Time atorvastatin AdvReac Severe Muscle Pain Verified 09/07/21 18:40 atarax AdvReac Severe other Uncoded 09/12/21 10:47 lithium AdvReac Severe Anaphylaxis Uncoded 09/07/21 18:28 Assessment & Plan Assessment & Plan (1) History of chest pain: Status: Acute Code(s): Z87.898 - Personal history of other specified conditions (2) Bipolar disorder, now depressed: Status: Acute Code(s): F31.30 - Bipolar disorder, current episode depressed, mild or moderate severity, unspecified (3) Partial seizures: Status: Acute Code(s): R56.9 - Unspecified convulsions (4) History of pseudoseizure: Status: Acute Code(s): Z87.898 - Personal history of other specified conditions Plan 09/12/21- Continue to monitor symptoms Continue clearances for tentative ECT on 09/14 Educate, support, encourage milieu participation DBT Focused coping skills education I spent minutes with the patient and/or on the patient floor today, greater than?50% of which was spent counseling/coordinating care. Patient educated on: diagnosis, medication risk/benefits and therapeutic strategies Informed Consent: understands and further education needed Reason for contiued inpatient stay Substantial Risk for: rapid decompensation and med/psych decompensation
--- NOTE | 2021-09-13 | EEG_ITS ---
This is a 16-channel EEG with an EKG lead. The patient is reported awake during the tracing. Background EEG rhythm during wakefulness is about 10 to 12 hertz low to medium amplitude posteriorly lower amplitude fast anteriorly. The patient transitioned into drowsiness and light sleep during the tracing. No definite sharp wave spikes or paroxysmal tendency noted. Cardiac lead does not reveal any significant abnormality. Photic stimulation does not produce any significant driving. Hyperventilation is not performed. IMPRESSION: No significant abnormality noted on this EEG. MD KELVIN Werner/FERNANDO / [id number]
[2021-09-13] MEDS: Acetaminophen 325 MG TABLET 650 MG PO (04:58)
[2021-09-13] MEDS: Levothyroxine Sodium 100 MCG TABLET PO (04:59)
[2021-09-13] MEDS: carisoprodoL 350 MG TABLET PO ×3 (04:59→19:59)
[2021-09-13 06:00] VITALS: BP 113/58; PULSE 78; RESP 15; TEMP 36.4; O2SAT 97
[2021-09-13 07:00] VITALS: BMI 33.8
[2021-09-13] MEDS: Dextroamphetamine/Amphetamine XR 5 MG CAP.ER.24H 25 MG PO (08:29)
[2021-09-13] MEDS: Ferrous Sulfate 324 MG TABLET.DR PO (08:29)
[2021-09-13] MEDS: Cholecalciferol (Vitamin D3) 25 MCG TABLET 50 MCG PO (08:29)
[2021-09-13] MEDS: Docusate Sodium 100 MG CAPSULE PO ×2 (08:30→19:58)
[2021-09-13] MEDS: Sertraline HCL 100 MG TABLET 200 MG PO (08:30)
[2021-09-13] MEDS: Buprenorphine/Naloxone 8/2 mg FILM 1 FILM SUBLINGUAL ×3 (08:30→20:13)
[2021-09-13] MEDS: ARIPiprazole 5 MG TABLET PO (08:30)
[2021-09-13] MEDS: Gabapentin 600 MG TABLET PO ×3 (08:30→17:10)
[2021-09-13] MEDS: Ibuprofen 800 MG TABLET PO ×3 (08:30→20:00)
[2021-09-13] MEDS: LORazepam 0.5 MG TABLET PO ×2 (08:30→14:31)
--- NOTE | 2021-09-13 10:00 | PM.EVENT ---
Event Note Date of Service: 09/13/21 Event Note: Event her patient's bedside for seeing her today on consultation. Patient was not in the room and a gone down for testing. Will see her tomorrow, unless there is some urgent issues please contact me when she is back in the room
[2021-09-13] MEDS: Propranolol HCL 20 MG TABLET 60 MG PO ×2 (11:34→19:57)
--- NOTE | 2021-09-13 12:23 | CA_ITS ---
Transthoracic Echocardiogram Patient (Last, First, Middle): Nneka Garrett, Gender: Female Date of : 1975 Age: 46 Procedure Date: 09/13/2021 Procedure Type: Transthoracic Echocardiogram Location: M5 Height: 152.4 cm Weight: 77.11 kg BSA: 1.74 m2 Heart Rate: bpm BP: 123 / 66 mmHg Fingerprint Classifier: TO Referring MD: Anayeli MILLS Field Assessor: Quinton Srivastava MD Symptoms: chest pain, jerez, pre-op ect Study Quality: Fair ECG Rhythm: Sinus Conclusions: - Essentially normal study Findings Procedure Information Contrast agent, definity, is being given per protocol without apparent complications. Left Ventricle Normal left ventricular size, thickness, and systolic function. The visually estimated ejection fraction is between 65-70%. Spectral Doppler is indicative of a normal filling pattern. Right Ventricle Normal right ventricular cavity size. Atria The left atrium is normal in size. Interatrial shunt cannot be excluded. The right atrium was not well visualized. Aortic Valve Normal aortic valve structure and function. There is no aortic valve stenosis. There is no aortic valve regurgitation. Mitral Valve Likely normal mitral valve structure and function. There is trace mitral valve regurgitation. There is no mitral valve stenosis. Pulmonic Valve The pulmonic valve was not well visualized. Tricuspid Valve Likely normal tricuspid valve structure and function. There is trace tricuspid valve regurgitation. The right ventricular systolic pressure is normal. The right ventricular systolic pressure is 21 mmHg. Normal right atrial pressure. There is no evidence of pulmonary hypertension. Great Vessels All visible segments of the aorta are normal in size. The pulmonary artery was not well visualized. Venous The inferior vena cava is normal in size and collapses greater than 50% with inspiration. Pericardium/Pleural There is no evidence of pericardial effusion. Prior Study Comparison No prior study available for comparison. Measurements 2D Linear Measurements IVSd: 1.09 0.6-0.9/0.6-1.0 cm LVIDd: 4.45 3.9-5.3/4.2-5.9 cm LVIDd Index: 2.56 2.4-3.2/2.2-3.1 cm/m2 LVIDs: 3.33 2.0-3.6 cm LVPWd: 0.87 0.7-1.1 cm LA Diam: 3.90 2.7-3.8/3.0-4.0 cm LAIDs Index: 2.24 1.5-2.3 cm/m2 LV Mass: 182.14 67-162/88-224 g LV Mass Index: 104.68 43-95/49-115 g/m2 LVOT Diam: 2.00 3.0+(-)1.3 cm 2D Systolic Function EF 4C: 61.30 >55% EF 2C: 70.80 >55% EF BiP: 66.70 >55% Mitral Valve MV Pk E: 0.84 MV PK A: 0.47 MV Decel Time: 180.00 E/A: 1.80 E'Lateral: 12.10 E'Medial: 8.81 E/E' Med: 9.50 E/E' Lat: 6.90 PHT: 53.00 MVA PHT: 4.15 Decel [place]: 4.65 Aortic Valve AoV Pk Phil: 1.54 AoV Mn Phil: 0.99 AoV VTI: 0.32 AoV Pk Grad: 9.00 Aov Mn Grad: 5.00 EVAN Cont.VTI: 2.37 LVOT LVOT Pk Phil: 1.16 LVOT Mn Phil: 0.76 LVOT VTI: 0.24 LVOT Pk Grad: 5.00 LVOT Mn Grad: 3.00 LVOT Diam: 2.00 LVOT Area: 3.14 Diastolic Function MV Pk E: 0.84 MV Pk A: 0.47 E/A: 1.80 E'Medial: 8.81 E/E' Med: 9.50 E' Laterial: 12.10 E/E' Lat: 6.90 Right Ventricle TAPSE (mm): 22.60 TVS' Phil: 11.10 Tricuspid Valve TR Pk Phil: 2.15 TR Pk Grad: 18.00 RA Press: 3.00 RVSP: 21.00 Great Vessels Aorta Sinus of Valsalva: 3.04 2.0-3.5 cm Ao Asc: 3.00 2.1-3.4 cm Updated in Other Vendor System with Status of Final Quinton Srivastava MD electronically signed on 09/13/2021 4:58:34 PM with status of Final
--- NOTE | 2021-09-13 13:03 | HO.PSYCHPN ---
Subjective Subjective Date of Service: 09/13/21 Reason For Visit: ECT, Depression Subjective Notes: Conditional Voluntary Healthcare Proxy: No Guardianship: No Medical Problems Affecting Mental Status: No Interim History: Continues medical eval for ECT. ECHO and EEG completed. Resting after her testing. Attending groups, participating in milieu, however, current milieu is volatile, so pt is attempting to manage this along with her own needs. No med SE. Considering CPAP discontinuation as med timing at HS and CPAP one to one timing are not conducive to her usual sleeping pattern. Medication Compliance: Yes Side effects from medications: No Attending Groups: Yes Review of Systems Acute medical concerns: No Medical eval for ECT continues. Medical Review of Systems: unchanged Review of Systems Psychiatric: Reports anxiety, Reports depression, Reports hopelessness and Reports anhedonia Mental Status Exam Mental Status Exam Patient Appearance: Appropriate Patient Orientation: Person, Place, Time and Situation Level of Consciousness: Awake, Appropriate and Alert Patient Behavior: Appropriate, Talkative, Cooperative, Anxious and Good Eye Contact Mood Description: Anxious and Apprehensive Affect Description: Anxious and Apprehensive Patient Cognition Impaired: No Ability to Follow Directions: Good Speech Pattern: Clear, Perseverating, Appropriate, Spontaneous Speech and Soft-Spoken Memory Description: Intact Hallucinations: None Delusions: Not Present Perceptual Disturbances: Depersonalization and Derealization Thought Process: Distracted and Rumination Thought Content: positive for [place], positive for Circumstantial, positive for Perseveration and positive for Suicidal Ideation (denies) Depressive Symptoms: Increased Anxiety, Thoughts of /Suicide (denies) and Loss of Energy Judgement: Fair Diagnostics Vital Signs (24Hr): Vital Signs - 24 hr 09/12/21 14:33 09/12/21 18:00 09/13/21 06:00 Temperature 97.6 F 97.6 F Pulse Rate 93 78 78 Respiratory Rate 16 15 Blood Pressure 119/72 113/58 L 113/58 L Pulse Oximetry 97 97 97 Oxygen Delivery Method Room Air Room Air Room Air BMI result Body Mass Index 33.2 Labs Results: 09/10/21 22:50 09/10/21 22:50 Labs: Laboratory Results - last 48 hr 09/11/21 14:58 Iron 91 TIBC 506 H % Saturation 18 Unsat Iron Binding 415 25-OH Vitamin D Total 60.0 Imaging Radiology Impressions: ITS Impressions Head CT 09/10/21 23:04 IMPRESSION: No acute intracranial pathology. Medications Medications Current Medications Acetaminophen (Acetaminophen 325 Mg Tablet) 650 mg PO Q6H PRN PRN Reason: Headache/Pain Mild Scale (1-3) Last Admin: 09/13/21 04:58 Dose: 650 mg Al Hydroxide/Mg Hydroxide (Magnesium Hydrox/Alum Hydrox 30 Ml Oral.Susp) 30 ml PO Q6H PRN PRN Reason: Heartburn/Nausea Albuterol Sulfate (Albuterol Sulfate 90 Mcg 8 Gm Inhaler) 1 puff INHALE Q4H PRN PRN Reason: Shortness of Breath Amphetamine/Dextroamphetamine (Dextroamphetamine/Amphetamine Xr 5 Mg Cap.Er.24h) 25 mg PO DAILY [facility] Last Admin: 09/13/21 08:29 Dose: 25 mg Aripiprazole (Aripiprazole 5 Mg Tablet) 5 mg PO DAILY [facility] Last Admin: 09/13/21 08:30 Dose: 5 mg Buprenorphine/Naloxone (Buprenorphine/Naloxone 8/2 Mg Film) 1 film SUBLINGUAL TID [facility] Last Admin: 09/13/21 08:30 Dose: 1 film Carisoprodol (Carisoprodol 350 Mg Tablet) 350 mg PO TID PRN PRN Reason: Pain, Mild (Pain Scale 1-3) Last Admin: 09/13/21 11:33 Dose: 350 mg Clonidine HCl (Clonidine Hcl 0.1 Mg Tablet) 0.1 mg PO TID PRN; Protocol PRN Reason: Anxiety Clotrimazole (Clotrimazole 1 % Cream 15 Gm Tube) 1 appl TOPICAL BID PRN; Protocol PRN Reason: Rash Docusate Sodium (Docusate Sodium 100 Mg Capsule) 100 mg PO BID [facility] Last Admin: 09/13/21 08:30 Dose: 100 mg Ferrous Sulfate (Ferrous Sulfate 324 Mg Tablet.) 324 mg PO DAILY [facility] Last Admin: 09/13/21 08:29 Dose: 324 mg Gabapentin (Gabapentin 600 Mg Tablet) 600 mg PO QID [facility] Last Admin: 09/13/21 12:35 Dose: 600 mg Ibuprofen (Ibuprofen 800 Mg Tablet) 800 mg PO TID [facility] Last Admin: 09/13/21 08:30 Dose: 800 mg Levothyroxine Sodium (Levothyroxine Sodium 100 Mcg Tablet) 100 mcg PO DAILY@0600 [facility] Last Admin: 09/13/21 04:59 Dose: 100 mcg Lorazepam (Lorazepam 0.5 Mg Tablet) 0.5 mg PO TID [facility] Last Admin: 09/13/21 08:30 Dose: 0.5 mg Magnesium Hydroxide (Milk Of Magnesia 30 Ml Oral.Susp) 30 ml PO DAILY PRN PRN Reason: Constipation Last Admin: 09/10/21 11:30 Dose: 30 ml Omeprazole (Omeprazole 20 Mg Capsule.Dr) 20 mg PO DAILY@1630 [facility] Last Admin: 09/12/21 17:22 Dose: 20 mg Pharmacy Consult (Consult Rx Perform Med Rec) 1 each MISCELLANE ONCE PRN PRN Reason: Consult order Polyethylene Glycol (Polyethylene Glycol 3350 17 Gm Powd.Pack) 17 gm PO DAILY PRN PRN Reason: Constipation Last Admin: 09/11/21 12:03 Dose: 17 gm Polyethylene Glycol (Polyethylene Glycol 3350 17 Gm Powd.Pack) 17 gm PO BEDTIME [facility] Last Admin: 09/12/21 21:08 Dose: Not Given Propranolol HCl (Propranolol Hcl 20 Mg Tablet) 60 mg PO BID [facility]; Protocol Last Admin: 09/13/21 11:34 Dose: 60 mg Sertraline HCl (Sertraline Hcl 100 Mg Tablet) 200 mg PO DAILY [facility] Last Admin: 09/13/21 08:30 Dose: 200 mg Trazodone HCl (Trazodone Hcl 100 Mg Tablet) 100 mg PO BEDTIME PRN PRN Reason: Insomnia Last Admin: 09/11/21 23:06 Dose: 100 mg Vitamin D (Cholecalciferol (Vitamin D3) 25 Mcg Tablet) 50 mcg PO DAILY [facility] Last Admin: 09/13/21 08:29 Dose: 50 mcg Zolpidem Tartrate (Zolpidem Tartrate 5 Mg Tablet) 10 mg PO BEDTIME [facility] Last Admin: 09/12/21 21:04 Dose: 10 mg Allergies Allergies Allergy/AdvReac Type Severity Reaction Status Date / Time atorvastatin AdvReac Severe Muscle Pain Verified 09/07/21 18:40 atarax AdvReac Severe other Uncoded 09/12/21 10:47 lithium AdvReac Severe Anaphylaxis Uncoded 09/07/21 18:28 Assessment & Plan Assessment & Plan (1) History of chest pain: Status: Acute Code(s): Z87.898 - Personal history of other specified conditions (2) Bipolar disorder, now depressed: Status: Acute Code(s): F31.30 - Bipolar disorder, current episode depressed, mild or moderate severity, unspecified (3) Partial seizures: Status: Acute Code(s): R56.9 - Unspecified convulsions (4) History of pseudoseizure: Status: Acute Code(s): Z87.898 - Personal history of other specified conditions Plan 09/12/21- Continue to monitor symptoms Continue clearances for tentative ECT on 09/14 Educate, support, encourage milieu participation DBT Focused coping skills education 09/13/21- Continue current regime Medical clearance continues for ECT. Uncertain if we are clear for 09/14 at this time. I spent minutes with the patient and/or on the patient floor today, greater than?50% of which was spent counseling/coordinating care. Patient educated on: therapeutic strategies and medical condition Informed Consent: understands and further education needed Reason for contiued inpatient stay Substantial Risk for: harm to self, inability to function, rapid decompensation and med/psych decompensation
[2021-09-13] MEDS: Omeprazole 20 MG CAPSULE.DR PO (17:10)
[2021-09-13 17:47] VITALS: BP 127/70; PULSE 76; RESP 18; TEMP 36.6; O2SAT 97
[2021-09-13] MEDS: Zolpidem Tartrate 5 MG TABLET 10 MG PO (19:58)
--- NOTE | 2021-09-14 | CA_ITS ---
Acquisition Time: 2021-09-14 10:19:31 Total Exercise Time: 00:06:03 Test Indications: Chest Pain Medications: Protocol: QUANG Max HR: 117 BPM 67% of Pred: 173 BPM Max BP: 176/072 mmHG Max Work Load: 7.0 METS Exercise stress test with exercise 6 min 3 sec of Quang protocol, achieving 67% MPHR, with request to stop due to inability to keep up with speed in stage 3 , with report of 2/10 left chest discomfort with radiation to left shoulder, which increased to 8/10 with walking, with one PVC, with normotensive and blunted chronotropic response to exercise ( had propranolol today), with nondiagnostic EKG for ischemia. In recovery her chest discomfort gradually improved back to baseline. Test reviewed with Dr Srivastava. Referred By: Quinton Srivastava Overread By: DENYS ZULETA
[2021-09-14] MEDS: Acetaminophen 325 MG TABLET 650 MG PO ×3 (05:53→20:53)
[2021-09-14] MEDS: carisoprodoL 350 MG TABLET PO ×4 (05:53→22:02)
[2021-09-14] MEDS: Levothyroxine Sodium 100 MCG TABLET PO (05:53)
[2021-09-14] MEDS: Gabapentin 600 MG TABLET PO ×4 (08:40→20:54)
[2021-09-14] MEDS: Ibuprofen 800 MG TABLET PO ×3 (08:40→20:53)
[2021-09-14] MEDS: Docusate Sodium 100 MG CAPSULE PO ×2 (08:40→20:54)
[2021-09-14] MEDS: Buprenorphine/Naloxone 8/2 mg FILM 1 FILM SUBLINGUAL ×3 (08:40→20:55)
[2021-09-14] MEDS: Ferrous Sulfate 324 MG TABLET.DR PO (08:40)
[2021-09-14] MEDS: Sertraline HCL 100 MG TABLET 200 MG PO (08:40)
[2021-09-14] MEDS: ARIPiprazole 5 MG TABLET PO (08:40)
[2021-09-14] MEDS: LORazepam 0.5 MG TABLET PO ×3 (08:40→20:51)
[2021-09-14] MEDS: Propranolol HCL 20 MG TABLET 60 MG PO ×2 (08:40→20:51)
[2021-09-14] MEDS: Dextroamphetamine/Amphetamine XR 5 MG CAP.ER.24H 25 MG PO (08:40)
[2021-09-14] MEDS: Cholecalciferol (Vitamin D3) 25 MCG TABLET 50 MCG PO (08:41)
[2021-09-14 08:47] VITALS: BP 103/61; PULSE 72; RESP 20; TEMP 36.2; O2SAT 96
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
[2021-09-14 14:36] LABS: Copper, serum 166 mcg/dL (70-175)
--- NOTE | 2021-09-14 17:04 | HO.PSYCHPN ---
Subjective Subjective Date of Service: 09/14/21 Reason For Visit: ECT, Depression Subjective Notes: Conditional Voluntary Healthcare Proxy: No Guardianship: No Medical Problems Affecting Mental Status: No Interim History: EEG and ECHO results essentially normal. Pt reports attempting more milieu participation. Conflict with a peer who was aggressive with pt reviewed (pt responded to this she did not initiate this conflict). Reports new room-mate is a good match, meds are intact and without SE. Pt considering completing her eval for ECT and requesting to do OP. Reports milieu to be too loud, too much drama, and too attention seeking . Reports this precipitates anxiety and chest pain-EKG's have been normal. Reports fair sleep. Agrees we will repeat CBCD and TSH on 09/17 to assess efficacy of ferrous sulfate and increase in levothyroxine. Medication Compliance: Yes Side effects from medications: No Attending Groups: Yes Review of Systems Acute medical concerns: No Medical Review of Systems: unchanged Review of Systems Psychiatric: Reports abnormal sleep pattern, Reports anxiety, Reports depression, Reports difficulty concentrating, Reports hopelessness, Reports irritability, Reports anhedonia, Reports mood swings and Reports suicidal ideation (denies) Mental Status Exam Mental Status Exam Patient Appearance: Appropriate Patient Orientation: Person, Place, Time and Situation Level of Consciousness: Awake, Appropriate and Alert Patient Behavior: Appropriate, Talkative, Cooperative, Anxious and Good Eye Contact Mood Description: Anxious and Apprehensive Affect Description: Anxious and Apprehensive Patient Cognition Impaired: No Ability to Follow Directions: Good Speech Pattern: Clear, Perseverating, Appropriate, Spontaneous Speech and Soft-Spoken Memory Description: Intact Hallucinations: None Delusions: Not Present Perceptual Disturbances: Depersonalization and Derealization Thought Process: Distracted and Rumination Thought Content: positive for [place], positive for Circumstantial, positive for Perseveration and positive for Suicidal Ideation (denies) Depressive Symptoms: Increased Anxiety, Thoughts of /Suicide (denies) and Loss of Energy Judgement: Fair Diagnostics Vital Signs (24Hr): Vital Signs - 24 hr 09/13/21 17:47 09/14/21 08:47 Temperature 97.8 F 97.2 F Pulse Rate 76 72 Respiratory Rate 18 20 Blood Pressure 127/70 103/61 Pulse Oximetry 97 96 Oxygen Delivery Method Room Air Room Air BMI result Body Mass Index 33.8 Labs Results: 09/10/21 22:50 09/10/21 22:50 Labs: Laboratory Results - last 48 hr 09/11/21 14:58 Serum Copper 166 Imaging Radiology Impressions: ITS Impressions Head CT 09/10/21 23:04 IMPRESSION: No acute intracranial pathology. Medications Medications Current Medications Acetaminophen (Acetaminophen 325 Mg Tablet) 650 mg PO Q6H PRN PRN Reason: Headache/Pain Mild Scale (1-3) Last Admin: 09/14/21 12:10 Dose: 650 mg Al Hydroxide/Mg Hydroxide (Magnesium Hydrox/Alum Hydrox 30 Ml Oral.Susp) 30 ml PO Q6H PRN PRN Reason: Heartburn/Nausea Albuterol Sulfate (Albuterol Sulfate 90 Mcg 8 Gm Inhaler) 1 puff INHALE Q4H PRN PRN Reason: Shortness of Breath Amphetamine/Dextroamphetamine (Dextroamphetamine/Amphetamine Xr 5 Mg Cap.Er.24h) 25 mg PO DAILY [facility] Last Admin: 09/14/21 08:40 Dose: 25 mg Aripiprazole (Aripiprazole 5 Mg Tablet) 5 mg PO DAILY [facility] Last Admin: 09/14/21 08:40 Dose: 5 mg Buprenorphine/Naloxone (Buprenorphine/Naloxone 8/2 Mg Film) 1 film SUBLINGUAL TID [facility] Last Admin: 09/14/21 14:09 Dose: 1 film Carisoprodol (Carisoprodol 350 Mg Tablet) 350 mg PO TID PRN PRN Reason: Pain, Mild (Pain Scale 1-3) Last Admin: 09/14/21 12:10 Dose: 350 mg Clonidine HCl (Clonidine Hcl 0.1 Mg Tablet) 0.1 mg PO TID PRN; Protocol PRN Reason: Anxiety Clotrimazole (Clotrimazole 1 % Cream 15 Gm Tube) 1 appl TOPICAL BID PRN; Protocol PRN Reason: Rash Docusate Sodium (Docusate Sodium 100 Mg Capsule) 100 mg PO BID [facility] Last Admin: 09/14/21 08:40 Dose: 100 mg Ferrous Sulfate (Ferrous Sulfate 324 Mg Tablet.Dr) 324 mg PO DAILY [facility] Last Admin: 09/14/21 08:40 Dose: 324 mg Gabapentin (Gabapentin 600 Mg Tablet) 600 mg PO QID [facility] Last Admin: 09/14/21 12:10 Dose: 600 mg Ibuprofen (Ibuprofen 800 Mg Tablet) 800 mg PO TID [facility] Last Admin: 09/14/21 14:10 Dose: 800 mg Levothyroxine Sodium (Levothyroxine Sodium 100 Mcg Tablet) 100 mcg PO DAILY@0600 [facility] Last Admin: 09/14/21 05:53 Dose: 100 mcg Lorazepam (Lorazepam 0.5 Mg Tablet) 0.5 mg PO TID [facility] Last Admin: 09/14/21 14:10 Dose: 0.5 mg Magnesium Hydroxide (Milk Of Magnesia 30 Ml Oral.Susp) 30 ml PO DAILY PRN PRN Reason: Constipation Last Admin: 09/10/21 11:30 Dose: 30 ml Omeprazole (Omeprazole 20 Mg Capsule.Dr) 20 mg PO DAILY@1630 [facility] Last Admin: 09/13/21 17:10 Dose: 20 mg Pharmacy Consult (Consult Rx Perform Med Rec) 1 each MISCELLANE ONCE PRN PRN Reason: Consult order Polyethylene Glycol (Polyethylene Glycol 3350 17 Gm Powd.Pack) 17 gm PO DAILY PRN PRN Reason: Constipation Last Admin: 09/11/21 12:03 Dose: 17 gm Polyethylene Glycol (Polyethylene Glycol 3350 17 Gm Powd.Pack) 17 gm PO BEDTIME [facility] Last Admin: 09/13/21 20:15 Dose: Not Given Propranolol HCl (Propranolol Hcl 20 Mg Tablet) 60 mg PO BID [facility]; Protocol Last Admin: 09/14/21 08:40 Dose: 60 mg Sertraline HCl (Sertraline Hcl 100 Mg Tablet) 200 mg PO DAILY [facility] Last Admin: 09/14/21 08:40 Dose: 200 mg Trazodone HCl (Trazodone Hcl 100 Mg Tablet) 100 mg PO BEDTIME PRN PRN Reason: Insomnia Last Admin: 09/11/21 23:06 Dose: 100 mg Vitamin D (Cholecalciferol (Vitamin D3) 25 Mcg Tablet) 50 mcg PO DAILY [facility] Last Admin: 09/14/21 08:41 Dose: 50 mcg Zolpidem Tartrate (Zolpidem Tartrate 5 Mg Tablet) 10 mg PO BEDTIME [facility] Last Admin: 09/13/21 19:58 Dose: 10 mg Allergies Allergies Allergy/AdvReac Type Severity Reaction Status Date / Time atorvastatin AdvReac Severe Muscle Pain Verified 09/07/21 18:40 atarax AdvReac Severe other Uncoded 09/12/21 10:47 lithium AdvReac Severe Anaphylaxis Uncoded 09/07/21 18:28 Assessment & Plan Assessment & Plan (1) Bipolar disorder, now depressed: Status: Acute Code(s): F31.30 - Bipolar disorder, current episode depressed, mild or moderate severity, unspecified Plan 09/14/21- Continue current plan Continue medical eval for ECT clearance. I spent minutes with the patient and/or on the patient floor today, greater than?50% of which was spent counseling/coordinating care. Patient educated on: medication risk/benefits and therapeutic strategies Informed Consent: understands and further education needed Reason for contiued inpatient stay Substantial Risk for: harm to self, inability to function, rapid decompensation and med/psych decompensation
[2021-09-14] MEDS: Omeprazole 20 MG CAPSULE.DR PO (17:09)
[2021-09-14 20:39] VITALS: BP 139/59; PULSE 80; TEMP 36.1
[2021-09-14] MEDS: Zolpidem Tartrate 5 MG TABLET 10 MG PO (20:52)
[2021-09-14] MEDS: cloNIDine HCL 0.1 MG TABLET PO (22:01)
--- NOTE | 2021-09-15 | ECG_ITS ---
Test Reason : CHEST PAIN Blood Pressure : / mmHG Vent. Rate : 065 BPM Atrial Rate : 065 BPM P-R Int : 178 ms QRS Dur : 100 ms QT Int : 414 ms P-R-T Axes : 039 -03 037 degrees QTc Int : 430 ms Normal sinus rhythm Possible Inferior infarct , age undetermined Abnormal ECG When compared with ECG of 12-SEP-2021 14:49, Borderline criteria for Inferior infarct are now Present Referred By: Mary Slaughter Electronically Signed By:BOUCHRA CASTELLANO MD
[2021-09-15] MEDS: carisoprodoL 350 MG TABLET PO ×3 (04:51→17:12)
[2021-09-15] MEDS: Acetaminophen 325 MG TABLET 650 MG PO ×3 (04:52→19:47)
[2021-09-15] MEDS: Levothyroxine Sodium 100 MCG TABLET PO (04:53)
[2021-09-15 06:00] VITALS: BP 116/62; PULSE 74; RESP 18; TEMP 36.4; O2SAT 97
[2021-09-15] MEDS: Docusate Sodium 100 MG CAPSULE PO ×2 (07:55→19:47)
[2021-09-15] MEDS: Cholecalciferol (Vitamin D3) 25 MCG TABLET 50 MCG PO (07:55)
[2021-09-15] MEDS: Gabapentin 600 MG TABLET PO ×4 (07:56→19:47)
[2021-09-15] MEDS: Dextroamphetamine/Amphetamine XR 5 MG CAP.ER.24H 25 MG PO (07:56)
[2021-09-15] MEDS: Propranolol HCL 20 MG TABLET 60 MG PO ×2 (07:56→19:48)
[2021-09-15] MEDS: Ibuprofen 800 MG TABLET PO ×3 (07:56→19:48)
[2021-09-15] MEDS: ARIPiprazole 5 MG TABLET PO (07:57)
[2021-09-15] MEDS: Ferrous Sulfate 324 MG TABLET.DR PO (07:57)
[2021-09-15] MEDS: LORazepam 0.5 MG TABLET PO ×3 (07:57→19:48)
[2021-09-15] MEDS: Sertraline HCL 100 MG TABLET 200 MG PO (07:57)
[2021-09-15] MEDS: Buprenorphine/Naloxone 8/2 mg FILM 1 FILM SUBLINGUAL ×3 (07:57→19:48)
[2021-09-15 08:01] VITALS: BP 122/60; PULSE 70
[2021-09-15] MEDS: Omeprazole 20 MG CAPSULE.DR PO (17:12)
[2021-09-15] MEDS: Clotrimazole 1 % Cream 15 GM TUBE 1 APPL TOPICAL (17:42)
[2021-09-15 19:37] VITALS: BP 131/77; PULSE 75; TEMP 36.6
[2021-09-15] MEDS: polyethylene glycoL 3350 17 GM POWD.PACK PO (19:45)
[2021-09-15] MEDS: Zolpidem Tartrate 5 MG TABLET 10 MG PO (19:48)
[2021-09-15] MEDS: Hydrocortisone 1 % Cream 28.35 GM TUBE 1 APPL TOPICAL (19:56)
[2021-09-15 22:15] VITALS: BP 114/76; PULSE 76
[2021-09-15 23:05] VITALS: BP 147/77; PULSE 65; TEMP 36
--- NOTE | 2021-09-15 23:14 | P.PNPSI_ITS ---
Subjective Subjective Date of Service: 09/15/21 Reason For Visit: ECT, Depression Subjective Notes: [place] Warning and Conditional Voluntary Healthcare Proxy: No Guardianship: No Medical Problems Affecting Mental Status: No Interim History: Patient seen and discussed with team. Pt asks for hydrocortison from pruritic area from ecg electrode sticker. Patient evaluated today and upon interview pt says she is doing good, feels a little anxious this morning. Waiting for ECT clearance. Friday has a repeat stress test. Says the abililisa has helped and she is advocating for an increase, I really do believe that was what I needed. Insists seizures are PNES. Feels safe. Denies SI/SIB. Has been using her cpap, plans to continue at home. Medication Compliance: Yes Side effects from medications: No Attending Groups: Yes Review of Systems Acute medical concerns: No Medical Review of Systems: unchanged Mental Status Exam Mental Status Exam Narrative: Patient Appearance: Appropriate Patient Orientation: Person, Place, Time and Situation Level of Consciousness: Awake, Appropriate and Alert Patient Behavior: Appropriate, Talkative, Cooperative, Anxious and Good Eye Contact Mood Description: Anxious and Apprehensive Affect Description: Anxious and Apprehensive Patient Cognition Impaired: No Ability to Follow Directions: Good Speech Pattern: Clear, Perseverating, Appropriate, Spontaneous Speech and Soft- Spoken Memory Description: Intact Hallucinations: None Delusions: Not Present Perceptual Disturbances: Depersonalization and Derealization Thought Process: Distracted and Rumination Thought Content: positive for [place], positive for Circumstantial, positive for Perseveration and positive for Suicidal Ideation (denies) Depressive Symptoms: Increased Anxiety, Thoughts of /Suicide (denies) and Loss of Energy Judgment: Fair Diagnostics Vital Signs (24Hr): Vital Signs - 24 hr 09/15/21 19:37 09/15/21 22:15 09/15/21 23:05 Temperature 97.8 F 96.8 F Pulse Rate 75 76 65 Respiratory Rate Blood Pressure 131/77 114/76 147/77 H Pulse Oximetry Oxygen Delivery Method 09/16/21 09:58 Temperature 97.8 F Pulse Rate 63 Respiratory Rate 20 Blood Pressure 121/68 Pulse Oximetry 97 Oxygen Delivery Method Room Air BMI result Body Mass Index 33.8 Labs Results: 09/10/21 22:50 09/10/21 22:50 Imaging Radiology Impressions: ITS Impressions Head CT 09/10/21 23:04 IMPRESSION: No acute intracranial pathology. Medications Medications Current Medications Acetaminophen (Acetaminophen 325 Mg Tablet) 650 mg PO Q6H PRN PRN Reason: Headache/Pain Mild Scale (1-3) Last Admin: 09/16/21 08:28 Dose: 650 mg Al Hydroxide/Mg Hydroxide (Magnesium Hydrox/Alum Hydrox 30 Ml Oral.Susp) 30 ml PO Q6H PRN PRN Reason: Heartburn/Nausea Albuterol Sulfate (Albuterol Sulfate 90 Mcg 8 Gm Inhaler) 1 puff INHALE Q4H PRN PRN Reason: Shortness of Breath Amphetamine/Dextroamphetamine (Dextroamphetamine/Amphetamine Xr 5 Mg Cap.Er.24h) 25 mg PO DAILY [facility] Last Admin: 09/16/21 08:19 Dose: 25 mg Aripiprazole (Aripiprazole 5 Mg Tablet) 5 mg PO DAILY [facility] Last Admin: 09/16/21 08:19 Dose: 5 mg Aripiprazole (Aripiprazole 2 Mg Tablet) 2 mg PO DAILY [facility] Last Admin: 09/16/21 08:19 Dose: 2 mg Buprenorphine/Naloxone (Buprenorphine/Naloxone 8/2 Mg Film) 1 film SUBLINGUAL TID [facility] Last Admin: 09/16/21 14:10 Dose: 1 film Carisoprodol (Carisoprodol 350 Mg Tablet) 350 mg PO TID PRN PRN Reason: Pain, Mild (Pain Scale 1-3) Last Admin: 09/16/21 11:38 Dose: 350 mg Clonidine HCl (Clonidine Hcl 0.1 Mg Tablet) 0.1 mg PO TID PRN; Protocol PRN Reason: Anxiety Last Admin: 09/14/21 22:01 Dose: 0.1 mg Clotrimazole (Clotrimazole 1 % Cream 15 Gm Tube) 1 appl TOPICAL BID PRN; Protocol PRN Reason: Rash Last Admin: 09/15/21 17:42 Dose: 1 appl Docusate Sodium (Docusate Sodium 100 Mg Capsule) 100 mg PO BID [facility] Last Admin: 09/16/21 08:19 Dose: 100 mg Ferrous Sulfate (Ferrous Sulfate 324 Mg Tablet.Dr) 324 mg PO DAILY [facility] Last Admin: 09/16/21 08:18 Dose: 324 mg Gabapentin (Gabapentin 600 Mg Tablet) 600 mg PO QID [facility] Last Admin: 09/16/21 12:07 Dose: 600 mg Hydrocortisone (Hydrocortisone 1 % Cream 28.35 Gm Tube) 1 appl TOPICAL DAILY PRN PRN Reason: pruritic area Last Admin: 09/15/21 19:56 Dose: 1 appl Ibuprofen (Ibuprofen 800 Mg Tablet) 800 mg PO TID [facility] Last Admin: 09/16/21 14:10 Dose: 800 mg Levothyroxine Sodium (Levothyroxine Sodium 100 Mcg Tablet) 100 mcg PO DAILY@0600 [facility] Last Admin: 09/16/21 05:25 Dose: 100 mcg Lorazepam (Lorazepam 0.5 Mg Tablet) 0.5 mg PO TID [facility] Last Admin: 09/16/21 14:39 Dose: 0.5 mg Magnesium Hydroxide (Milk Of Magnesia 30 Ml Oral.Susp) 30 ml PO DAILY PRN PRN Reason: Constipation Last Admin: 09/10/21 11:30 Dose: 30 ml Omeprazole (Omeprazole 20 Mg Capsule.Dr) 20 mg PO DAILY@1630 [facility] Last Admin: 09/15/21 17:12 Dose: 20 mg Pharmacy Consult (Consult Rx Perform Med Rec) 1 each MISCELLANE ONCE PRN PRN Reason: Consult order Polyethylene Glycol (Polyethylene Glycol 3350 17 Gm Powd.Pack) 17 gm PO DAILY PRN PRN Reason: Constipation Last Admin: 09/16/21 11:39 Dose: 17 gm Polyethylene Glycol (Polyethylene Glycol 3350 17 Gm Powd.Pack) 17 gm PO BEDTIME [facility] Last Admin: 09/15/21 19:45 Dose: 17 gm Propranolol HCl (Propranolol Hcl 20 Mg Tablet) 60 mg PO BID [facility]; Protocol Last Admin: 09/16/21 09:57 Dose: 60 mg Sertraline HCl (Sertraline Hcl 100 Mg Tablet) 200 mg PO DAILY [facility] Last Admin: 09/16/21 08:18 Dose: 200 mg Trazodone HCl (Trazodone Hcl 100 Mg Tablet) 100 mg PO BEDTIME PRN PRN Reason: Insomnia Last Admin: 09/11/21 23:06 Dose: 100 mg Vitamin D (Cholecalciferol (Vitamin D3) 25 Mcg Tablet) 50 mcg PO DAILY [facility] Last Admin: 09/16/21 08:17 Dose: 50 mcg Zolpidem Tartrate (Zolpidem Tartrate 5 Mg Tablet) 10 mg PO BEDTIME [facility] Last Admin: 09/15/21 19:48 Dose: 10 mg Allergies Allergies Allergy/AdvReac Type Severity Reaction Status Date / Time atorvastatin AdvReac Severe Muscle Pain Verified 09/07/21 18:40 atarax AdvReac Severe other Uncoded 09/12/21 10:47 lithium AdvReac Severe Anaphylaxis Uncoded 09/07/21 18:28 Assessment & Plan Assessment & Plan (1) Bipolar disorder, now depressed: Status: Acute Code(s): F31.30 - Bipolar disorder, current episode depressed, mild or moderate severity, unspecified Plan 09/14/21- Continue current plan Continue medical eval for ECT clearance. 09/15/21: No changes to current treatment plan. I spent minutes with the patient and/or on the patient floor today, greater than?50% of which was spent counseling/coordinating care. Patient educated on: diagnosis, medication risk/benefits and therapeutic strategies Reason for contiued inpatient stay Substantial Risk for: med/psych decompensation
[2021-09-16] MEDS: carisoprodoL 350 MG TABLET PO ×4 (00:22→21:39)
[2021-09-16] MEDS: Levothyroxine Sodium 100 MCG TABLET PO (05:25)
[2021-09-16] MEDS: Cholecalciferol (Vitamin D3) 25 MCG TABLET 50 MCG PO (08:17)
[2021-09-16] MEDS: Ibuprofen 800 MG TABLET PO ×3 (08:17→18:31)
[2021-09-16] MEDS: Buprenorphine/Naloxone 8/2 mg FILM 1 FILM SUBLINGUAL ×3 (08:17→19:52)
[2021-09-16] MEDS: Gabapentin 600 MG TABLET PO ×4 (08:18→19:52)
[2021-09-16] MEDS: Sertraline HCL 100 MG TABLET 200 MG PO (08:18)
[2021-09-16] MEDS: Ferrous Sulfate 324 MG TABLET.DR PO (08:18)
[2021-09-16] MEDS: Dextroamphetamine/Amphetamine XR 5 MG CAP.ER.24H 25 MG PO (08:19)
[2021-09-16] MEDS: ARIPiprazole 5 MG TABLET PO (08:19)
[2021-09-16] MEDS: ARIPiprazole 2 MG TABLET PO (08:19)
[2021-09-16] MEDS: Docusate Sodium 100 MG CAPSULE PO ×2 (08:19→19:51)
[2021-09-16] MEDS: Acetaminophen 325 MG TABLET 650 MG PO ×2 (08:28→18:31)
[2021-09-16] MEDS: Propranolol HCL 20 MG TABLET 60 MG PO ×2 (09:57→19:52)
[2021-09-16 09:58] VITALS: BP 121/68; PULSE 63; RESP 20; TEMP 36.6; O2SAT 97
[2021-09-16] MEDS: polyethylene glycoL 3350 17 GM POWD.PACK PO ×2 (11:39→19:51)
--- NOTE | 2021-09-16 12:49 | HO.PSYCHPN ---
Subjective Subjective Date of Service: 09/16/21 Reason For Visit: ECT, Depression Subjective Notes: Conditional Voluntary Interim History: Chart reviewed. Discussed with Nursing. Overall patient reports feeling much better compared to admission. Feels that Zoloft and Abilify combination is working well. Energy better. Concentration good. Sleep good. No SI. Hopeful for discharge tomorrow after medical workup complete. Did discuss may not need outpatient ECT, which she feels might be part of the plan. Medication Compliance: Yes Side effects from medications: No Attending Groups: Yes Review of Systems Acute medical concerns: No Review of Systems Review of Systems Nothing new. Medical workup ongoing. Mental Status Exam Mental Status Exam Narrative: Pleasant. Engaged. Organized. Euthymic. No SI. No HI. No agitation or psychosis. Insight and judgment fair Diagnostics Vital Signs (24Hr): Vital Signs - 24 hr 09/15/21 19:37 09/15/21 22:15 09/15/21 23:05 Temperature 97.8 F 96.8 F Pulse Rate 75 76 65 Respiratory Rate Blood Pressure 131/77 114/76 147/77 H Pulse Oximetry Oxygen Delivery Method 09/16/21 09:58 Temperature 97.8 F Pulse Rate 63 Respiratory Rate 20 Blood Pressure 121/68 Pulse Oximetry 97 Oxygen Delivery Method Room Air BMI result Body Mass Index 33.8 Labs Results: 09/10/21 22:50 09/10/21 22:50 Labs: Laboratory Results - last 48 hr 09/11/21 14:58 Serum Copper 166 Imaging Radiology Impressions: ITS Impressions Head CT 09/10/21 23:04 IMPRESSION: No acute intracranial pathology. Medications Medications Current Medications Acetaminophen (Acetaminophen 325 Mg Tablet) 650 mg PO Q6H PRN PRN Reason: Headache/Pain Mild Scale (1-3) Last Admin: 09/16/21 08:28 Dose: 650 mg Al Hydroxide/Mg Hydroxide (Magnesium Hydrox/Alum Hydrox 30 Ml Oral.Susp) 30 ml PO Q6H PRN PRN Reason: Heartburn/Nausea Albuterol Sulfate (Albuterol Sulfate 90 Mcg 8 Gm Inhaler) 1 puff INHALE Q4H PRN PRN Reason: Shortness of Breath Amphetamine/Dextroamphetamine (Dextroamphetamine/Amphetamine Xr 5 Mg Cap.Er.24h) 25 mg PO DAILY [facility] Last Admin: 09/16/21 08:19 Dose: 25 mg Aripiprazole (Aripiprazole 5 Mg Tablet) 5 mg PO DAILY [facility] Last Admin: 09/16/21 08:19 Dose: 5 mg Aripiprazole (Aripiprazole 2 Mg Tablet) 2 mg PO DAILY [facility] Last Admin: 09/16/21 08:19 Dose: 2 mg Buprenorphine/Naloxone (Buprenorphine/Naloxone 8/2 Mg Film) 1 film SUBLINGUAL TID [facility] Last Admin: 09/16/21 08:17 Dose: 1 film Carisoprodol (Carisoprodol 350 Mg Tablet) 350 mg PO TID PRN PRN Reason: Pain, Mild (Pain Scale 1-3) Last Admin: 09/16/21 11:38 Dose: 350 mg Clonidine HCl (Clonidine Hcl 0.1 Mg Tablet) 0.1 mg PO TID PRN; Protocol PRN Reason: Anxiety Last Admin: 09/14/21 22:01 Dose: 0.1 mg Clotrimazole (Clotrimazole 1 % Cream 15 Gm Tube) 1 appl TOPICAL BID PRN; Protocol PRN Reason: Rash Last Admin: 09/15/21 17:42 Dose: 1 appl Docusate Sodium (Docusate Sodium 100 Mg Capsule) 100 mg PO BID [facility] Last Admin: 09/16/21 08:19 Dose: 100 mg Ferrous Sulfate (Ferrous Sulfate 324 Mg Tablet.) 324 mg PO DAILY [facility] Last Admin: 09/16/21 08:18 Dose: 324 mg Gabapentin (Gabapentin 600 Mg Tablet) 600 mg PO QID [facility] Last Admin: 09/16/21 12:07 Dose: 600 mg Hydrocortisone (Hydrocortisone 1 % Cream 28.35 Gm Tube) 1 appl TOPICAL DAILY PRN PRN Reason: pruritic area Last Admin: 09/15/21 19:56 Dose: 1 appl Ibuprofen (Ibuprofen 800 Mg Tablet) 800 mg PO TID [facility] Last Admin: 09/16/21 08:17 Dose: 800 mg Levothyroxine Sodium (Levothyroxine Sodium 100 Mcg Tablet) 100 mcg PO DAILY@0600 [facility] Last Admin: 09/16/21 05:25 Dose: 100 mcg Magnesium Hydroxide (Milk Of Magnesia 30 Ml Oral.Susp) 30 ml PO DAILY PRN PRN Reason: Constipation Last Admin: 09/10/21 11:30 Dose: 30 ml Omeprazole (Omeprazole 20 Mg Capsule.) 20 mg PO DAILY@1630 [facility] Last Admin: 09/15/21 17:12 Dose: 20 mg Pharmacy Consult (Consult Rx Perform Med Rec) 1 each MISCELLANE ONCE PRN PRN Reason: Consult order Polyethylene Glycol (Polyethylene Glycol 3350 17 Gm Powd.Pack) 17 gm PO DAILY PRN PRN Reason: Constipation Last Admin: 09/16/21 11:39 Dose: 17 gm Polyethylene Glycol (Polyethylene Glycol 3350 17 Gm Powd.Pack) 17 gm PO BEDTIME [facility] Last Admin: 09/15/21 19:45 Dose: 17 gm Propranolol HCl (Propranolol Hcl 20 Mg Tablet) 60 mg PO BID [facility]; Protocol Last Admin: 09/16/21 09:57 Dose: 60 mg Sertraline HCl (Sertraline Hcl 100 Mg Tablet) 200 mg PO DAILY [facility] Last Admin: 09/16/21 08:18 Dose: 200 mg Trazodone HCl (Trazodone Hcl 100 Mg Tablet) 100 mg PO BEDTIME PRN PRN Reason: Insomnia Last Admin: 09/11/21 23:06 Dose: 100 mg Vitamin D (Cholecalciferol (Vitamin D3) 25 Mcg Tablet) 50 mcg PO DAILY [facility] Last Admin: 09/16/21 08:17 Dose: 50 mcg Zolpidem Tartrate (Zolpidem Tartrate 5 Mg Tablet) 10 mg PO BEDTIME [facility] Last Admin: 09/15/21 19:48 Dose: 10 mg Allergies Allergies Allergy/AdvReac Type Severity Reaction Status Date / Time atorvastatin AdvReac Severe Muscle Pain Verified 09/07/21 18:40 atarax AdvReac Severe other Uncoded 09/12/21 10:47 lithium AdvReac Severe Anaphylaxis Uncoded 09/07/21 18:28 Assessment & Plan Assessment & Plan (1) Bipolar disorder, now depressed: Status: Acute Code(s): F31.30 - Bipolar disorder, current episode depressed, mild or moderate severity, unspecified Plan 09/14/21- Continue current plan Continue medical eval for ECT clearance. 09/16/2021: No changes to current treatment plan. I spent minutes with the patient and/or on the patient floor today, greater than?50% of which was spent counseling/coordinating care. Reason for contiued inpatient stay Substantial Risk for: rapid decompensation
[2021-09-16] MEDS: LORazepam 0.5 MG TABLET PO ×2 (14:39→19:51)
[2021-09-16] MEDS: Omeprazole 20 MG CAPSULE.DR PO (18:31)
[2021-09-16] MEDS: Zolpidem Tartrate 5 MG TABLET 10 MG PO (19:52)
[2021-09-16 20:00] VITALS: BP 151/70; PULSE 82; TEMP 36.3
[2021-09-17] MEDS: cloNIDine HCL 0.1 MG TABLET PO (02:45)
[2021-09-17] MEDS: Acetaminophen 325 MG TABLET 650 MG PO ×2 (02:48→09:32)
--- NOTE | 2021-09-17 03:11 | PC.NURSE ---
AT APPROXIMATELY 0230 PT GOT IN TO A VERBAL ALTERCATION WITH A PEER. PT REFERRED TO THIS PEER A QUEER WHILE WALKING PAST HIM IN THE KITCHEN AFTER AN EARLIER VERBAL ALTERCATION. SHE BEGAN YELLING AT THE OTHER PATIENT. PT REFUSED TO GO BACK TO HER ROOM AND DE-ESCALATE. PT DID NOT WANT TO LEAVE THE AREA HER PEER WAS IN. PT WAS ASKED MULTIPLE TIMES TO REMOVE HERSELF FROM THE SITUATION. PT BEGAN VERBALLY ABUSIVE STAFF YELLING DONT PUT YOUR MERCY GRABBERS ON ME AND GO AHEAD AND TOUCH ME SEE WHAT HAPPENS, IT WONT BE GOOD FOR YOU . PT GESTURED TOWARDS STAFF. AFTER APPROXIMATELY 25 MINUTES PT WAS DE-ESCALATED. PT THEN WAS WALKING PAST HER PEER . WHEN ASKED TO KEEP HER DISTANCE FROM HIM STATED, I WILL GO WHEREVER THE FUCK I WANT . PT BEGAN CRYING AND COMPLAINED OF SHORTNESS OF BREATH. PTS VITAL SIGNS WERE STABLE. O2 SAT WAS 98% PT WAS GIVEN WATER AND INSTRUCTED THROUGH DEEP BREATHING EXERCISES BY RN. PT WAS YELLING IN THE HALLWAY ALL OF YOU STAY THE FUCK AWAY FROM ME WHILE CRYING. PT LAID ON FLOOR IN THE MIDDLE OF THE HALLWAY SCREAMING. PT WAS ASKED TO RETURN TO HER BEDROOM. PT REFUSED. WAS NOTIFIED OF PATIENTS BEHAVIORS.
[2021-09-17] MEDS: Levothyroxine Sodium 100 MCG TABLET PO (04:15)
[2021-09-17] MEDS: carisoprodoL 350 MG TABLET PO ×2 (04:15→10:07)
[2021-09-17 08:03] LABS: MANUAL DIFF FLAG NO
[2021-09-17] MEDS: ARIPiprazole 2 MG TABLET PO (08:03)
[2021-09-17] MEDS: Docusate Sodium 100 MG CAPSULE PO (08:03)
[2021-09-17] MEDS: Ibuprofen 800 MG TABLET PO (08:03)
[2021-09-17] MEDS: Buprenorphine/Naloxone 8/2 mg FILM 1 FILM SUBLINGUAL (08:03)
[2021-09-17] MEDS: Gabapentin 600 MG TABLET PO ×2 (08:03→12:44)
[2021-09-17] MEDS: ARIPiprazole 5 MG TABLET PO (08:03)
[2021-09-17] MEDS: Ferrous Sulfate 324 MG TABLET.DR PO (08:03)
[2021-09-17] MEDS: Cholecalciferol (Vitamin D3) 25 MCG TABLET 50 MCG PO (08:03)
[2021-09-17] MEDS: Dextroamphetamine/Amphetamine XR 5 MG CAP.ER.24H 25 MG PO (08:03)
[2021-09-17] MEDS: Propranolol HCL 20 MG TABLET 60 MG PO (08:03)
[2021-09-17] MEDS: Sertraline HCL 100 MG TABLET 200 MG PO (08:04)
[2021-09-17] MEDS: LORazepam 0.5 MG TABLET PO (08:04)
[2021-09-17 08:06] LABS: Basophils Percent Auto 0.5 % (0-2); Eosinophils Absolute Auto 0.1 X10*3/uL (0.0-0.4); Eosinophils Percent Auto 1.8 % (0-4); Hematocrit 29.3 % (37.0-47.0); Hemoglobin 9.8 g/dl (12.0-16.0); Imm Gran Abs Auto 0.01 X10*3/uL (0.00-0.03); Imm Gran Pct Auto 0.2 % (0.0-0.4); Lymphocytes Absolute Auto 1.8 X10*3/uL (1.2-4.9); Lymphocytes Percent Auto 33.5 % (20-40); Mean Corpuscular HGB Conc 33.4 g/dl (31.0-35.0); Mean Corpuscular Hemoglobin 28.2 pg (27.0-33.0); Mean Corpuscular Volume 84.4 fL (80.0-98.0); Mean Platelet Volume 12.5 fL (9.4-12.3); Monocytes Absolute Auto 0.5 X10*3/uL (0.1-1.2); Monocytes Percent Auto 8.4 % (2-11); Neutrophils Percent Auto 55.6 % (45-73); Platelet Count 155 X10*3/uL (160-400); Red Blood Count 3.47 X10*6/uL (4.20-5.50); Red Cell Distribution Width 14.2 % (11.0-16.0); White Blood Count 5.5 X10*3/uL (4.8-10.8)
[2021-09-17 08:41] LABS: Thyroid Stimulating Hormone 0.02 uIU/mL (0.32-4.0)
--- NOTE | 2021-09-17 17:41 | P.DS_ITS ---
DS: Providers Provider Date of Service: 09/17/21 Date of admission: 09/06/21 23:04 Date of discharge: 09/17/21 Primary care physician: Tari Dan NP Admitting clinician: Airam Bishop Attending physician on admission: Norberto Ryder Consults: 09/07/21 13:54 Consult to Psychiatry Routine Consulting Provider: Psych Covering Reason for consultation: ECT Has provider been notified: No 09/10/21 12:49 Consult to Hospitalist Routine Consulting Provider: Hospitalist Reason For Exam: Medical clearance for ECT 09/10/21 22:25 Consult to Neurology Routine Consulting Provider: [facility] Reason for consultation: Seizure; breif unresponsive episode 09/12/21 09:31 Consult to Urology Stat Consulting Provider: [facility] U[facility] Reason for consultation: pt unable to urinate-bladder scan positive Has provider been notified: No 09/12/21 11:36 Consult to Cardiology Routine Consulting Provider: [facility] Cardi[facility] Reason for consultation: pre-ect, new infarct on ekg Has provider been notified: No Attending physician on discharge: Norberto Ryder Discharging clinician: Airam Bishpo DS: Diagnosis Discharge Diagnosis (1) Bipolar disorder, now depressed: Status: Acute DS: Medications Discharge Medications Home Medications: Home Medications Medication Instructions Recorded Confirmed albuterol sulfate 90 mcg/actuation 1 inh inhalation Q4H PRN SOB 09/06/21 09/06/21 aerosol inhaler buprenorphine 8 mg-naloxone 2 mg 1 strip sublingual TID 09/06/21 09/06/21 sublingual film cholecalciferol (vitamin D3) 50 1 cap PO DAILY 09/06/21 09/06/21 mcg (2,000 unit) capsule (Vitamin D3) clonidine HCl 0.1 mg tablet 1 tab PO TID PRN Anxiety 09/06/21 09/06/21 clotrimazole 1 % topical cream 1 appl topical BID PRN Rash 09/06/21 09/06/21 dextroamphetamine-amphetamine ER 1 cap PO DAILY 09/06/21 09/06/21 25 mg 24hr capsule,extend release estradiol 2 mg (7.5 mcg/24 hour) 1 ring vaginal [id number] 09/06/21 09/06/21 vaginal ring (Estring) gabapentin 600 mg tablet 1 tab PO QID 09/06/21 09/06/21 ibuprofen 800 mg tablet 1 tab PO TID 09/06/21 09/06/21 levothyroxine 100 mcg tablet 1 tab PO DAILY 09/06/21 09/06/21 linaclotide 290 mcg capsule 1 cap PO DAILY 09/06/21 09/06/21 (Linzess) lorazepam 0.5 mg tablet 1 tab PO TID 09/06/21 09/06/21 omeprazole 20 mg capsule,delayed 1 cap PO DAILY@1630 09/06/21 09/06/21 release propranolol 60 mg tablet 1 tab PO BID 09/06/21 09/06/21 sertraline 100 mg tablet 2 tab PO DAILY 09/06/21 09/06/21 simvastatin 40 mg tablet 1 tab PO BEDTIME 09/06/21 09/06/21 zolpidem 10 mg tablet 1 tab PO BEDTIME 09/06/21 09/06/21 Previous Rx's Medication Instructions Recorded aripiprazole 2 mg tablet (Abilify) 2 mg PO DAILY #30 tabs 09/17/21 aripiprazole 5 mg tablet (Abilify) 5 mg PO DAILY #30 tabs 09/17/21 carisoprodol 350 mg tablet 350 mg PO TID PRN Pain, Mild (Pain 09/17/21 Scale 1-3) #21 tabs docusate sodium 100 mg capsule 100 mg PO BID #60 caps 09/17/21 ferrous sulfate 324 mg (65 mg 324 mg PO DAILY #30 tabs 09/17/21 iron) tablet,delayed release Mental Status Exam Mental Status Exam Narrative: Patient Appearance: Appropriate Patient Orientation: Person, Place, Time and Situation Level of Consciousness: Awake, Appropriate and Alert Patient Behavior: Appropriate, Talkative, Cooperative, Anxious and Good Eye Contact Mood Description: Anxious and Apprehensive Affect Description: Anxious and Apprehensive Patient Cognition Impaired: No Ability to Follow Directions: Good Speech Pattern: Clear, Perseverating, Appropriate, Spontaneous Speech and Soft- Spoken Memory Description: Intact Hallucinations: None Delusions: Not Present Perceptual Disturbances: Depersonalization and Derealization Thought Process: Distracted and Rumination Thought Content: positive for Orange, positive for Circumstantial, positive for Perseveration and positive for Suicidal Ideation (denies) Depressive Symptoms: Increased Anxiety, Thoughts of /Suicide (denies) and Loss of Energy Judgment: Fair Data Data Completed and Pending Completed studies during hospitalization [Text1]: 09/10/21 09/10/21 09/10/21 22:21 22:50 22:50 WBC 5.4 RBC 3.51 L Hgb 9.9 L Hct 29.8 L MCV 84.9 MCH 28.2 MCHC 33.2 RDW 13.7 Plt Count 169 MPV 12.7 H Immature Gran % (Auto) 0.6 H Neut % (Auto) 46.1 Lymph % (Auto) 39.1 Jack % (Auto) 11.4 H Eos % (Auto) 2.2 Baso % (Auto) 0.6 Lymph # (Auto) 2.1 Jack # (Auto) 0.6 Eos # (Auto) 0.1 Baso # (Auto) 0.0 Abs Immat Gran (auto) 0.03 Absolute Neuts (auto) 2.5 Absolute Nucleated RBC 0.000 Nucleated RBC % (auto) 0.0 Sodium 135 Potassium 3.7 D Chloride 102 Carbon Dioxide 20 L Anion Gap 17 BUN 21 H Creatinine 0.96 Estim Creat Clear Calc 66.5 Estimated GFR > 60 POC Glucose 127 H Random Glucose 115 Calcium 9.5 Iron TIBC % Saturation Unsat Iron Binding Troponin I High Sens 25-OH Vitamin D Total TSH Serum Copper 09/10/21 09/11/21 09/11/21 22:50 08:30 14:58 WBC RBC Hgb Hct MCV MCH MCHC RDW Plt Count MPV Immature Gran % (Auto) Neut % (Auto) Lymph % (Auto) Jack % (Auto) Eos % (Auto) Baso % (Auto) Lymph # (Auto) Jack # (Auto) Eos # (Auto) Baso # (Auto) Abs Immat Gran (auto) Absolute Neuts (auto) Absolute Nucleated RBC Nucleated RBC % (auto) Sodium Potassium Chloride Carbon Dioxide Anion Gap BUN Creatinine Estim Creat Clear Calc Estimated GFR POC Glucose Random Glucose Calcium Iron 91 TIBC 506 H % Saturation 18 Unsat Iron Binding 415 Troponin I High Sens 7.9 7.5 25-OH Vitamin D Total 60.0 TSH Serum Copper 09/11/21 09/17/21 09/17/21 14:58 07:51 07:51 WBC 5.5 RBC 3.47 L Hgb 9.8 L Hct 29.3 L MCV 84.4 MCH 28.2 MCHC 33.4 RDW 14.2 Plt Count 155 L MPV 12.5 H Immature Gran % (Auto) 0.2 Neut % (Auto) 55.6 Lymph % (Auto) 33.5 Jack % (Auto) 8.4 Eos % (Auto) 1.8 Baso % (Auto) 0.5 Lymph # (Auto) 1.8 Jack # (Auto) 0.5 Eos # (Auto) 0.1 Baso # (Auto) 0.0 Abs Immat Gran (auto) 0.01 Absolute Neuts (auto) 3.0 Absolute Nucleated RBC 0.000 Nucleated RBC % (auto) 0.0 Sodium Potassium Chloride Carbon Dioxide Anion Gap BUN Creatinine Estim Creat Clear Calc Estimated GFR POC Glucose Random Glucose Calcium Iron TIBC % Saturation Unsat Iron Binding Troponin I High Sens 25-OH Vitamin D Total TSH 0.02 L Serum Copper 166 09/06/21 00:00 Urine clean catch - Urine cruz top Urine Culture - Final Imaging Diagnostic Imaging Impressions Head CT 09/10/21 23:04 IMPRESSION: No acute intracranial pathology. Cervical Spine X-Ray 09/17/21 12:42 IMPRESSION: Mild degenerative changes. Soft Tissue Neck X-Ray 09/17/21 12:42 IMPRESSION: Unremarkable examination. DS: Summary Hospital Course Hospital Course: Admission to adult psychiatry for exacerbation of symptoms of bipolar disorder, depressed, PTSD, pseudoseizures. Pt experienced medical symptoms during the hospitalization which were evaluated. Full cardiac evaluation will be continued on 10/02/21 with [facility] cardiology. Abilify was adjusted. ECT consult was completed. Pt requested discharge as she experienced conflict with a peer on the unit.She will continue treatment with her out patient team and will continue medical evauation with [facility] Cardiology and her primary care team. Time spent discussing smoking cessation with patient: 3 to 10 minutes Status at Discharge Functional status at discharge: independent ambulation Overall status at discharge: patient is back to baseline Time Spent with Patient Time attestation: Total time spent providing and/or coordinating discharge services: 35 Time spent: Greater than 30 minutes Discharge Plan Discharge Patient Disposition: Home, Self-Care Discharge Diagnosis: Bipolar Disorder, Depressed Referrals: Therapist: Geovanna Armstrong ([facility]) [Other] - 09/19/21 1:00 pm (In-person at the office ) Psychiatrist: Tanya Jordan ([facility]) [Other] - 09/21/21 11:20 am (In-person at the office; 40 minute appointment ) Tari Dan NP [Primary Care Provider] - 1 Week (pt. never showed up in 2020 for her first appt. so shes not registered there as a pt.) Discharge Medications: New ferrous sulfate 324 mg (65 mg iron) Tablet,Delayed Release (Dr/Ec) 324 mg PO DAILY Qty: 30 0RF aripiprazole [Abilify] 5 mg Tablet 5 mg PO DAILY Qty: 30 0RF aripiprazole [Abilify] 2 mg Tablet 2 mg PO DAILY Qty: 30 0RF docusate sodium 100 mg Capsule 100 mg PO BID Qty: 60 0RF carisoprodol 350 mg Tablet 350 mg PO TID PRN (Reason: Pain, Mild (Pain Scale 1-3)) Qty: 21 0RF Continued clonidine HCl 0.1 mg tablet 1 tab PO TID PRN (Reason: Anxiety) gabapentin 600 mg tablet 1 tab PO QID ibuprofen 800 mg tablet 1 tab PO TID sertraline 100 mg tablet 2 tab PO DAILY propranolol 60 mg tablet 1 tab PO BID simvastatin 40 mg tablet 1 tab PO BEDTIME levothyroxine 100 mcg tablet 1 tab PO DAILY lorazepam 0.5 mg tablet 1 tab PO TID omeprazole 20 mg capsule,delayed release(DR/EC) 1 cap PO DAILY@1630 zolpidem 10 mg tablet 1 tab PO BEDTIME albuterol sulfate 90 mcg/actuation HFA aerosol inhaler 1 inh INHALATION Q4H PRN (Reason: SOB) dextroamphetamine-amphetamine 25 mg capsule,extended release 24hr 1 cap PO DAILY cholecalciferol (vitamin D3) [Vitamin D3] 50 mcg (2,000 unit) capsule 1 cap PO DAILY buprenorphine-naloxone 8-2 mg film 1 strip sublingual TID Linzess 290 mcg capsule 1 cap PO DAILY Estring 2 mg (7.5 mcg /24 hour) ring 1 ring vaginal [id number] clotrimazole 1 % Cream 1 appl TOPICAL BID PRN (Reason: Rash) Rx Instructions: apply to under breast Discontinued aripiprazole 2 mg tablet 1 tab PO DAILY Discharge Orders: Discharge Order (Routine); Ordered 09/17/21 Ordered By: Airam Bishop Diet: Advance to usual diet Activity on Discharge: As tolerated Stand Alone Forms: Patient Portal Discharge page, Community Support Care Plan Goals: Mood Stabilization Health Concerns: Bipolar Disorder, Depressed History of pseudoseizures History of atypical chest pain Plan of Treatment: Attend follow up appointents Take medications as directed Complete cardiac evaluation with [facility] Cardiology Saturday, October 02, 2021 9am Cardiology, [facility] for Lexiscan Stress Test, rescheduled from 09/17/21. Assessment: Alert, oriented, non-suicidal, non-psychotic. Asks for discharge due to conflict with peers on the unit. Will complete her cardiac evaluation on an out patient basis. Discharge Date/Time: 09/17/21 13:08
== END 2021-09-17 13:08 | disposition home or self-care (01) | DRG 885 ==
LOC: HO.ED 18:23 → HO.PM5 23:18
PROVIDERS: Clinical Nurse Specialist Psychiatric/Mental Health, Adult; Emergency Medicine Emergency Medical Services; Hospitalist; Physician Assistant; Registered Nurse; Admitting Provider Psychiatry & Neurology Psychiatry; Emergency Provider Student in an Organized Health Care Education/Training Program; PCP Nurse Practitioner Gerontology; Visit Provider Psychiatry & Neurology Psychiatry
DX: F31.30 Bipolar disorder, current episode depressed, mild or moderate severity, unspecified (principal); R45.851 Suicidal ideations; I25.10 Atherosclerotic heart disease of native coronary artery without angina pectoris; E78.5 Hyperlipidemia, unspecified; E03.9 Hypothyroidism, unspecified; R56.9 Unspecified convulsions; M81.0 Age-related osteoporosis without current pathological fracture; D64.9 Anemia, unspecified; G89.29 Other chronic pain; M54.9 Dorsalgia, unspecified; Z20.822 Contact with and (suspected) exposure to COVID-19; Z87.891 Personal history of nicotine dependence; Z88.8 Allergy status to other drugs, medicaments and biological substances; Z79.890 Hormone replacement therapy; Z79.899 Other long term (current) drug therapy
CPT/HCPCS: 36415; 70360; 70450; 72050; 73030; 80048; 80053; 80061; 80307; 81001; 81025; 82077; 82306; 82525; 82607; 82746; 82947; 83036; 83540; 83735; 84439; 84443; 84484; 85025; 87086; 87635; 93005; 93017; 93306; 94660; 95816; 99285; Q9957